=== PATIENT | male | born 1945 | race Caucasian/White ===

== ENCOUNTER 2019-05-16 18:07 | Inpatient (IN) ==
[2019-05-16 18:55] LABS: Basophils % 0.3 %; Eosinophils # 0.2 K/mcL (0.0-0.6); Eosinophils % 1.2 %; Hematocrit 34.6 % (37.5-50.1); Immature Granulocytes % 1.3 % (0-4); Lymphocytes # 1.1 K/mcL (0.6-4.6); Lymphocytes % 8.5 %; Mean Corpuscular HGB Conc 31.8 g/dL (31.6-35.5); Mean Corpuscular Hemoglobin 28.4 pg (28.0-33.3); Mean Corpuscular Volume 89.4 fL (83.0-100.0); Mean Platelet Volume 9.6 fL (9.4-12.4); Monocytes % 8.1 %; Neutrophils # 10.1 K/mcL (1.6-8.9); Platelet Count 353 K/mcL (140-400); Red Blood Count 3.87 M/mcL (4.19-5.50); Red Cell Distribution Width 17.9 % (11.5-14.5); Segmented Neutrophils % 80.6 %; White Blood Count 12.6 K/mcL (4.3-11.1)
[2019-05-16] MEDS ORDERED: Piperacillin/Tazobactam 3.375 GM in 0.9 % Sodium Chloride Mini Bag 100 ML IVPB ONE (19:00)
[2019-05-16] MEDS ORDERED: DAPTOmycin 600 MG in 0.9 % Sodium Chloride 100 ML IVPB ONE (19:00)
[2019-05-16 19:03] LABS: INR 3.9
[2019-05-16 19:05] LABS: Prothrombin Time 44.4 Seconds (9.4-12.1)
[2019-05-16 21:00] LABS: Albumin 2.9 g/dL (3.5-5.7); Bilirubin,Total 0.9 mg/dL (0.3-1.0); Potassium 4.3 mEq/L (3.5-5.1); Total Protein 5.9 g/dL (6.4-8.9)
[2019-05-16] MEDS ORDERED: Ondansetron 4 MG/2 ML VIAL IVP PRN (21:03)
[2019-05-16] MEDS ORDERED: Naloxone 0.4 MG/ML INJ IVP PRN (21:03)
[2019-05-16] MEDS ORDERED: 0.9 % Sodium Chloride 1,000 ML IVC SCH (21:15)
[2019-05-16] MEDS ORDERED: *HR* Dextrose 50 % in Water (Syg) 50 ML SYRINGE IVP PRN (22:03)
[2019-05-16] MEDS ORDERED: D5% in Water 1,000 ML IVC PRN (22:03)
[2019-05-16] MEDS ORDERED: Dextrose Gel 15 GM/37.5 ML TUBE PO PRN ×2 (22:03)
[2019-05-16] MEDS: *HR* HYDROcodone/Acet 5/325 mg TABLET PO PRN (23:23)
[2019-05-16] MEDS: 0.9 % Sodium Chloride 1,000 ML IVC SCH (23:23)
[2019-05-17 06:35] LABS: Basophils # 0.1 K/mcL (0.0-0.2); Basophils % 0.3 %; Eosinophils # 0.1 K/mcL (0.0-0.6); Eosinophils % 0.8 %; Hematocrit 38.5 % (37.5-50.1); Hemoglobin 11.9 g/dL (12.9-16.9); Immature Granulocytes % 1.1 % (0-4); Lymphocytes # 1.2 K/mcL (0.6-4.6); Lymphocytes % 8.3 %; Mean Corpuscular HGB Conc 30.9 g/dL (31.6-35.5); Mean Corpuscular Hemoglobin 27.9 pg (28.0-33.3); Mean Corpuscular Volume 90.4 fL (83.0-100.0); Mean Platelet Volume 9.2 fL (9.4-12.4); Monocytes # 1.3 K/mcL (0.0-1.3); Monocytes % 9.1 %; Neutrophils # 11.8 K/mcL (1.6-8.9); Platelet Count 352 K/mcL (140-400); Red Blood Count 4.26 M/mcL (4.19-5.50); Red Cell Distribution Width 18.1 % (11.5-14.5); Segmented Neutrophils % 80.4 %; White Blood Count 14.7 K/mcL (4.3-11.1)
[2019-05-17 06:43] LABS: INR 3.4; Prothrombin Time 38.4 Seconds (9.4-12.1)
[2019-05-17 06:46] LABS: Activated Partial Thrombo Time 55.7 Seconds (26.0-36.0)
[2019-05-17] MEDS: Insulin LISPRO 300 UNITS/3 ML VIAL SQ SCH ×4 (08:24→23:35)
[2019-05-17 08:45] LABS: Bilirubin,Total 1.1 mg/dL (0.3-1.0); Calcium 8.2 mg/dL (8.6-10.3); Chol/HDL Ratio 2.1 (0-4.9); Magnesium 2.4 mg/dL (1.6-2.6); Phosphorous 4.2 mg/dL (2.7-4.5); Potassium 4.2 mEq/L (3.5-5.1)
[2019-05-17] MEDS: Piperacillin/Tazobactam 3.375 GM in 0.9 % Sodium Chloride Mini Bag 100 ML IVPB SCH ×3 (09:41→23:40)
[2019-05-17] MEDS: Acetaminophen 325 MG TABLET PO PRN (09:42)
[2019-05-17] MEDS: 0.9 % Sodium Chloride 1,000 ML IVC SCH (13:12)
[2019-05-17] MEDS ORDERED: Furosemide 40 MG TABLET PO SCH (17:00)
[2019-05-17] MEDS: Furosemide 40 MG TABLET PO SCH (17:53)
[2019-05-17] MEDS: DAPTOmycin 500 MG in 0.9 % Sodium Chloride 100 ML IVPB SCH (17:53)
[2019-05-17] MEDS ORDERED: DAPTOmycin 750 MG in 0.9 % Sodium Chloride 100 ML IVPB SCH (20:00)
[2019-05-17] MEDS: Melatonin 3 MG TABLET PO SCH (23:33)
[2019-05-18 04:37] LABS: Basophils # 0.1 K/mcL (0.0-0.2); Basophils % 0.4 %; Eosinophils # 0.2 K/mcL (0.0-0.6); Eosinophils % 1.4 %; Hematocrit 37.5 % (37.5-50.1); Hemoglobin 11.5 g/dL (12.9-16.9); Immature Granulocytes % 1.4 % (0-4); Lymphocytes # 1.3 K/mcL (0.6-4.6); Lymphocytes % 10.5 %; Mean Corpuscular HGB Conc 30.7 g/dL (31.6-35.5); Mean Corpuscular Volume 91.5 fL (83.0-100.0); Mean Platelet Volume 9.6 fL (9.4-12.4); Monocytes % 8.7 %; Neutrophils # 9.3 K/mcL (1.6-8.9); Platelet Count 392 K/mcL (140-400); Red Cell Distribution Width 18.1 % (11.5-14.5); Segmented Neutrophils % 77.6 %
[2019-05-18 04:50] LABS: Calcium 8.1 mg/dL (8.6-10.3); Potassium 4.2 mEq/L (3.5-5.1)
[2019-05-18] MEDS: Acetaminophen 325 MG TABLET PO PRN ×2 (06:52→20:57)
[2019-05-18] MEDS: Insulin LISPRO 300 UNITS/3 ML VIAL SQ SCH ×4 (08:15→20:08)
[2019-05-18] MEDS: Piperacillin/Tazobactam 3.375 GM in 0.9 % Sodium Chloride Mini Bag 100 ML IVPB SCH ×2 (10:12→18:19)
[2019-05-18] MEDS: Furosemide 40 MG TABLET PO SCH (10:12)
[2019-05-18 16:27] LABS: INR 3.6; Prothrombin Time 40.7 Seconds (9.4-12.1)
[2019-05-18] MEDS ORDERED: *HR* Phytonadione 10 MG/ML AMPUL SQ ONE (17:52)
[2019-05-18] MEDS: carvediloL 25 MG TABLET PO SCH (18:20)
[2019-05-18] MEDS: DAPTOmycin 500 MG in 0.9 % Sodium Chloride 100 ML IVPB SCH (20:04)
[2019-05-18] MEDS: *HR* Acetylcysteine 20% 600 MG/3 ML ORAL SYRINGE PO SCH (20:07)
[2019-05-18] MEDS: Melatonin 3 MG TABLET PO SCH (20:08)
[2019-05-18] MEDS: predniSONE 20 MG TABLET PO SCH (20:08)
[2019-05-19] MEDS: Piperacillin/Tazobactam 3.375 GM in 0.9 % Sodium Chloride Mini Bag 100 ML IVPB SCH ×3 (01:02→17:33)
[2019-05-19] MEDS: predniSONE 20 MG TABLET PO SCH (03:13)
[2019-05-19 04:09] LABS: Basophils % 0.2 %; Eosinophils % 0.1 %; Hematocrit 36.6 % (37.5-50.1); Hemoglobin 11.3 g/dL (12.9-16.9); Immature Granulocytes % 1.5 % (0-4); Lymphocytes # 0.5 K/mcL (0.6-4.6); Lymphocytes % 5.6 %; Mean Corpuscular HGB Conc 30.9 g/dL (31.6-35.5); Mean Corpuscular Volume 90.8 fL (83.0-100.0); Mean Platelet Volume 9.4 fL (9.4-12.4); Monocytes # 0.1 K/mcL (0.0-1.3); Monocytes % 1.5 %; Neutrophils # 8.5 K/mcL (1.6-8.9); Platelet Count 337 K/mcL (140-400); Red Blood Count 4.03 M/mcL (4.19-5.50); Red Cell Distribution Width 17.9 % (11.5-14.5); Segmented Neutrophils % 91.1 %; White Blood Count 9.3 K/mcL (4.3-11.1)
[2019-05-19 04:18] LABS: Calcium 8.2 mg/dL (8.6-10.3); Potassium 4.4 mEq/L (3.5-5.1)
[2019-05-19 04:59] LABS: INR 4.3
[2019-05-19 05:03] LABS: Prothrombin Time 48.8 Seconds (9.4-12.1)
[2019-05-19] MEDS ORDERED: Sod Bicarb 150mEq/D5W 150 MEQ/1,000 ML IV.SOLN IVC SCH (07:00)
[2019-05-19] MEDS: Famotidine 20 MG TABLET PO SCH (08:59)
[2019-05-19] MEDS: carvediloL 25 MG TABLET PO SCH ×2 (09:00→17:33)
[2019-05-19] MEDS: MV MINERALS PO SCH (09:06)
[2019-05-19] MEDS: [UNRECOGNIZED DRUG - OTHER] PO SCH (09:06)
[2019-05-19] MEDS: LYCOPENE PO SCH (09:06)
[2019-05-19] MEDS: GINKGO PO SCH (09:06)
[2019-05-19] MEDS: Insulin LISPRO 300 UNITS/3 ML VIAL SQ SCH ×4 (09:20→20:24)
[2019-05-19] MEDS ORDERED: *HR* Phytonadione 10 MG/ML AMPUL SQ ONE (12:30)
[2019-05-19] MEDS: Acetaminophen 325 MG TABLET PO PRN (14:23)
[2019-05-19] MEDS: *HR* Acetylcysteine 20% 600 MG/3 ML ORAL SYRINGE PO SCH ×2 (15:40→16:00)
[2019-05-19] MEDS: *HR* HYDROcodone/Acet 5/325 mg TABLET PO PRN (17:34)
[2019-05-19] MEDS: Insulin DETEMIR 100 UNIT/ML X5UNITS SQ SCH (20:25)
[2019-05-19] MEDS: DAPTOmycin 500 MG in 0.9 % Sodium Chloride 100 ML IVPB SCH (20:26)
[2019-05-19] MEDS: Melatonin 3 MG TABLET PO SCH (23:02)
[2019-05-20] MEDS: Piperacillin/Tazobactam 3.375 GM in 0.9 % Sodium Chloride Mini Bag 100 ML IVPB SCH ×3 (00:30→16:44)
[2019-05-20] MEDS: *HR* Acetylcysteine 20% 600 MG/3 ML ORAL SYRINGE PO SCH ×2 (04:52→11:15)
[2019-05-20 04:56] LABS: Basophils % 0.1 %; Eosinophils % 0.1 %; Hematocrit 34.4 % (37.5-50.1); Hemoglobin 10.6 g/dL (12.9-16.9); Immature Granulocytes % 1.7 % (0-4); Lymphocytes # 1.1 K/mcL (0.6-4.6); Lymphocytes % 9.8 %; Mean Corpuscular HGB Conc 30.8 g/dL (31.6-35.5); Mean Corpuscular Volume 90.8 fL (83.0-100.0); Monocytes # 0.8 K/mcL (0.0-1.3); Neutrophils # 9.2 K/mcL (1.6-8.9); Platelet Count 340 K/mcL (140-400); Red Blood Count 3.79 M/mcL (4.19-5.50); Red Cell Distribution Width 17.7 % (11.5-14.5); Segmented Neutrophils % 81.3 %; White Blood Count 11.3 K/mcL (4.3-11.1)
[2019-05-20 05:03] LABS: INR 2.3; Prothrombin Time 26.1 Seconds (9.4-12.1)
[2019-05-20 05:15] LABS: Calcium 8.1 mg/dL (8.6-10.3); Potassium 4.4 mEq/L (3.5-5.1)
[2019-05-20] MEDS: Insulin LISPRO 300 UNITS/3 ML VIAL SQ SCH ×4 (09:48→21:01)
[2019-05-20] MEDS: carvediloL 25 MG TABLET PO SCH ×2 (10:00→16:43)
[2019-05-20] MEDS: Famotidine 20 MG TABLET PO SCH (10:01)
[2019-05-20] MEDS: MV MINERALS PO SCH (10:02)
[2019-05-20] MEDS: [UNRECOGNIZED DRUG - OTHER] PO SCH (10:02)
[2019-05-20] MEDS: GINKGO PO SCH (10:02)
[2019-05-20] MEDS: LYCOPENE PO SCH (10:02)
[2019-05-20] MEDS: Acetaminophen 325 MG TABLET PO PRN (11:14)
[2019-05-20] MEDS: Artificial Tears SOLN 15 ML BOTTLE BOTH EYES PRN (16:45)
[2019-05-20] MEDS ORDERED: *HR* Phytonadione 10 MG/ML AMPUL SQ ONE (17:02)
[2019-05-20] MEDS: DAPTOmycin 500 MG in 0.9 % Sodium Chloride 100 ML IVPB SCH (21:00)
[2019-05-20] MEDS: Insulin DETEMIR 100 UNIT/ML X5UNITS SQ SCH (21:01)
[2019-05-20] MEDS: Melatonin 3 MG TABLET PO SCH (21:01)
[2019-05-21] MEDS: Acetaminophen 325 MG TABLET PO PRN ×2 (00:08→10:21)
[2019-05-21] MEDS: *HR* Acetylcysteine 20% 600 MG/3 ML ORAL SYRINGE PO SCH ×2 (00:08→11:03)
[2019-05-21] MEDS: Piperacillin/Tazobactam 3.375 GM in 0.9 % Sodium Chloride Mini Bag 100 ML IVPB SCH ×4 (00:09→23:35)
[2019-05-21] MEDS: Artificial Tears SOLN 15 ML BOTTLE BOTH EYES PRN (00:16)
[2019-05-21 05:51] LABS: Basophils % 0.3 %; Eosinophils # 0.1 K/mcL (0.0-0.6); Eosinophils % 1.2 %; Hematocrit 36.2 % (37.5-50.1); Hemoglobin 11.1 g/dL (12.9-16.9); Immature Granulocytes % 1.8 % (0-4); Lymphocytes # 1.2 K/mcL (0.6-4.6); Lymphocytes % 12.1 %; Mean Corpuscular HGB Conc 30.7 g/dL (31.6-35.5); Mean Corpuscular Hemoglobin 28.1 pg (28.0-33.3); Mean Corpuscular Volume 91.6 fL (83.0-100.0); Mean Platelet Volume 9.4 fL (9.4-12.4); Monocytes # 0.7 K/mcL (0.0-1.3); Neutrophils # 7.9 K/mcL (1.6-8.9); Platelet Count 309 K/mcL (140-400); Red Blood Count 3.95 M/mcL (4.19-5.50); Red Cell Distribution Width 17.9 % (11.5-14.5); Segmented Neutrophils % 77.6 %; White Blood Count 10.1 K/mcL (4.3-11.1)
[2019-05-21 05:59] LABS: INR 1.5; Prothrombin Time 17.3 Seconds (9.4-12.1)
[2019-05-21 06:15] LABS: Calcium 7.9 mg/dL (8.6-10.3); Potassium 4.1 mEq/L (3.5-5.1)
[2019-05-21] MEDS ORDERED: Sod Bicarb 150mEq/D5W 150 MEQ/1,000 ML IV.SOLN IVC ONE (07:45)
[2019-05-21] MEDS: Insulin LISPRO 300 UNITS/3 ML VIAL SQ SCH ×4 (08:08→21:29)
[2019-05-21] MEDS: carvediloL 25 MG TABLET PO SCH ×2 (10:21→20:14)
[2019-05-21] MEDS: Multivit/Ca/Min/Fe/FA 1 TAB TABLET PO SCH (10:21)
[2019-05-21] MEDS: Famotidine 20 MG TABLET PO SCH (10:21)
[2019-05-21] MEDS: Albumin 25% 25gram/100mL 25 GM/100 ML IV.SOLN IVC SCH ×4 (11:47→16:35)
[2019-05-21 14:23] LABS: Bilirubin,Urine Negative (Negative); Blood,Urine Negative (Negative); Clarity,Urine Clear (Clear); Color,Urine Yellow (Yellow); Glucose,Urine (UA) Normal (Normal); Ketones,Urine Negative (Negative); Leukocyte Esterase,Urine Negative (Negative); Nitrite,Urine Negative (Negative); PH,Urine 5.5 pH Units (5.0-8.0); Protein,Urine Negative (Neg-Trace); Specific Gravity,Urine 1.019 (1.010-1.025); Urobilinogen,Urine Normal (Normal)
[2019-05-21 14:47] LABS: Protein/Creatinine Ratio,Urine 0.21 mg/mg (0.00-0.20)
[2019-05-21] MEDS ORDERED: Heparin 1,000 UNITS/500 mL 500 ML ONE (17:27)
[2019-05-21] MEDS ORDERED: 0.9 % Sodium Chloride 1,000 ML ONE ×2 (17:27→17:37)
[2019-05-21] MEDS ORDERED: *HR* Heparin 10,000 UNIT/10 ML VIAL ONE (17:27)
[2019-05-21] MEDS ORDERED: Isovue-300 200 mL Infus..BTL ONE (17:37)
[2019-05-21] MEDS ORDERED: methylPREDNISolone 125 MG/2 ML VIAL ONE (17:53)
[2019-05-21] MEDS ORDERED: *HR* Midazolam HCl 2 MG/2 ML VIAL ONE (18:06)
[2019-05-21] MEDS ORDERED: 0.9 % Sodium Chloride 1,000 ML IVC SCH (19:15)
[2019-05-21] MEDS: DAPTOmycin 500 MG in 0.9 % Sodium Chloride 100 ML IVPB SCH (19:42)
[2019-05-21] MEDS: *HR* HYDROcodone/Acet 5/325 mg TABLET PO PRN (20:25)
[2019-05-21] MEDS: Melatonin 3 MG TABLET PO SCH (21:28)
[2019-05-21] MEDS: Insulin DETEMIR 100 UNIT/ML X5UNITS SQ SCH (21:28)
[2019-05-22] MEDS ORDERED: Acetaminophen IV 500 MG/50 ML INFUS..BTL IVPB ONE (02:54)
[2019-05-22 04:08] LABS: Basophils % 0.2 %; Hematocrit 35.5 % (37.5-50.1); Hemoglobin 10.8 g/dL (12.9-16.9); Lymphocytes # 0.5 K/mcL (0.6-4.6); Lymphocytes % 8.5 %; Mean Corpuscular HGB Conc 30.4 g/dL (31.6-35.5); Mean Corpuscular Hemoglobin 28.4 pg (28.0-33.3); Mean Corpuscular Volume 93.4 fL (83.0-100.0); Mean Platelet Volume 9.7 fL (9.4-12.4); Monocytes # 0.1 K/mcL (0.0-1.3); Monocytes % 1.3 %; Neutrophils # 5.3 K/mcL (1.6-8.9); Platelet Count 269 K/mcL (140-400); Red Cell Distribution Width 17.8 % (11.5-14.5)
[2019-05-22 04:12] LABS: INR 1.5; Prothrombin Time 17.3 Seconds (9.4-12.1)
[2019-05-22 04:24] LABS: Potassium 4.7 mEq/L (3.5-5.1)
[2019-05-22] MEDS: Insulin LISPRO 300 UNITS/3 ML VIAL SQ SCH ×4 (06:33→17:18)
[2019-05-22] MEDS: Multivit/Ca/Min/Fe/FA 1 TAB TABLET PO SCH (11:24)
[2019-05-22] MEDS: carvediloL 25 MG TABLET PO SCH ×2 (11:24→17:17)
[2019-05-22] MEDS: Famotidine 20 MG TABLET PO SCH (11:24)
[2019-05-22] MEDS: Piperacillin/Tazobactam 3.375 GM in 0.9 % Sodium Chloride Mini Bag 100 ML IVPB SCH (11:24)
[2019-05-22] MEDS ORDERED: Insulin LISPRO 300 UNITS/3 ML VIAL SQ SCH ×2 (11:34→21:00)
[2019-05-22] MEDS: *HR* Heparin 5,000 UNIT/ML VIAL SQ SCH (17:18)
[2019-05-22] MEDS ORDERED: DAPTOmycin 500 MG in 0.9 % Sodium Chloride 100 ML IVPB SCH (19:00)
[2019-05-22] MEDS: Doxycycline 100 MG CAPSULE PO SCH (21:00)
[2019-05-22] MEDS: Melatonin 3 MG TABLET PO SCH (21:00)
[2019-05-22] MEDS: Insulin DETEMIR 100 UNIT/ML X5UNITS SQ SCH (21:08)
[2019-05-23 02:03] LABS: Basophils % 0.2 %; Eosinophils % 0.2 %; Hematocrit 37.2 % (37.5-50.1); Hemoglobin 11.4 g/dL (12.9-16.9); Immature Granulocytes % 1.6 % (0-4); Lymphocytes # 1.2 K/mcL (0.6-4.6); Lymphocytes % 11.1 %; Mean Corpuscular HGB Conc 30.6 g/dL (31.6-35.5); Mean Corpuscular Hemoglobin 27.9 pg (28.0-33.3); Mean Platelet Volume 9.3 fL (9.4-12.4); Monocytes # 0.8 K/mcL (0.0-1.3); Monocytes % 7.6 %; Neutrophils # 8.5 K/mcL (1.6-8.9); Platelet Count 286 K/mcL (140-400); Red Blood Count 4.09 M/mcL (4.19-5.50); Red Cell Distribution Width 18.1 % (11.5-14.5); Segmented Neutrophils % 79.3 %
[2019-05-23 02:06] LABS: White Blood Count 10.7 K/mcL (4.3-11.1)
[2019-05-23 02:23] LABS: Calcium 8.1 mg/dL (8.6-10.3); Magnesium 2.5 mg/dL (1.6-2.6); Phosphorous 5.5 mg/dL (2.7-4.5); Potassium 4.3 mEq/L (3.5-5.1)
[2019-05-23] MEDS: *HR* Heparin 5,000 UNIT/ML VIAL SQ SCH ×2 (04:48→16:59)
[2019-05-23] MEDS ORDERED: *HR* Succinylcholine 200 MG/10 ML VIAL IVP ONE (06:54)
[2019-05-23] MEDS ORDERED: Lidocaine -MPF 2% 2 ML VIAL ONE ×2 (06:54→09:07)
[2019-05-23] MEDS ORDERED: *HR* FentaNYL (PF) 100 MCG/2 ML VIAL ONE (06:54)
[2019-05-23] MEDS ORDERED: *HR* Labetalol 20 MG/4 ML SYRINGE IVP ONE (06:54)
[2019-05-23] MEDS ORDERED: *HR* Rocuronium Bromide 50 MG/5 ML VIAL ONE (06:54)
[2019-05-23] MEDS ORDERED: Dexamethasone 4 MG/ML VIAL ONE (06:54)
[2019-05-23] MEDS ORDERED: Lidocaine -MPF 4% 5 ML AMPUL ONE (06:54)
[2019-05-23] MEDS ORDERED: *HR* Propofol 200 MG/20 ML VIAL IVP ONE (06:59)
[2019-05-23] MEDS ORDERED: Calcium Gluconate 1,000 MG/10 ML VIAL ONE (07:39)
[2019-05-23] MEDS ORDERED: Heparin 1,000 UNITS/500 mL 500 ML ONE ×2 (07:52→08:04)
[2019-05-23] MEDS ORDERED: *HR* Remifentanil 2 MG VIAL IVP ONE ×2 (08:05→11:23)
[2019-05-23] MEDS ORDERED: *HR* Phenylephrine 10 MG/ML VIAL ONE (08:07)
[2019-05-23] MEDS ORDERED: Vancomycin 1,000 MG, Sodium Chloride IRRigation 1,000 ML IR ONE (08:15)
[2019-05-23] MEDS ORDERED: *HR* Etomidate 40 MG/20 ML VIAL IVP ONE (08:16)
[2019-05-23] MEDS ORDERED: EPINEPHrine 1 MG/ML VIAL ONE (08:17)
[2019-05-23] MEDS ORDERED: Furosemide 40 MG/4 ML VIAL ONE (08:31)
[2019-05-23] MEDS ORDERED: *HR* Vasopressin 20 UNIT/ML VIAL ONE (08:33)
[2019-05-23] MEDS ORDERED: Amoxicillin/Clavulanate 500 MG TABLET PO SCH (09:33)
[2019-05-23] MEDS ORDERED: *HR* Dextrose 50 % in Water (Syg) 50 ML SYRINGE ONE (10:59)
[2019-05-23 11:14] LABS: ABG Base Excess -2 mEq/L (-2 to 3); ABG Chloride 106 mEq/L (98-107); ABG Glucose 43 mg/dL (60-95); ABG HCO3 22 mEq/L (21-27); ABG Ionized Calcium 1.07 mmol/L (1.15-1.35); ABG Oxygen Saturation 100 % (95-98); ABG PCO2 37 mmHg (35-45); ABG PH 7.39 pH Units (7.32-7.45); ABG PO2 540 mmHg (85-104); ABG TCO2 24 mEq/L (20-26)
[2019-05-23] MEDS ORDERED: *HR* HYDROmorphone (PF) 1 MG/ML SYRINGE IVP PRN (14:16)
[2019-05-23] MEDS ORDERED: *HR* OxyCODONE Immed Rel 5 MG TABLET PO PRN (14:16)
[2019-05-23] MEDS ORDERED: *HR* Dextrose 50 % in Water (Syg) 50 ML SYRINGE IVP PRN (15:45)
[2019-05-23] MEDS ORDERED: Naloxone 0.4 MG/ML INJ IVP PRN (15:45)
[2019-05-23] MEDS ORDERED: D5% in Water 1,000 ML IVC PRN (15:45)
[2019-05-23] MEDS ORDERED: 0.9 % Sodium Chloride 1,000 ML IVC SCH (15:45)
[2019-05-23] MEDS ORDERED: Dextrose Gel 15 GM/37.5 ML TUBE PO PRN ×2 (15:45)
[2019-05-23] MEDS ORDERED: Artificial Tears SOLN 15 ML BOTTLE BOTH EYES PRN (15:45)
[2019-05-23] MEDS ORDERED: Acetaminophen 325 MG TABLET PO PRN (15:45)
[2019-05-23] MEDS: Amoxicillin/Clavulanate 500 MG TABLET PO SCH (16:59)
[2019-05-23] MEDS: *HR* HYDROcodone/Acet 5/325 mg TABLET PO PRN (16:59)
[2019-05-23] MEDS: carvediloL 25 MG TABLET PO SCH (17:00)
[2019-05-23] MEDS: Insulin LISPRO 300 UNITS/3 ML VIAL SQ SCH ×2 (17:00→20:55)
[2019-05-23] MEDS: Calcium Acetate 667 MG CAPSULE PO SCH (17:01)
[2019-05-23] MEDS: Doxycycline 100 MG CAPSULE PO SCH (19:42)
[2019-05-23] MEDS: Insulin DETEMIR 100 UNIT/ML X5UNITS SQ SCH (21:26)
[2019-05-23] MEDS: Melatonin 3 MG TABLET PO SCH (21:29)
[2019-05-24 05:23] LABS: Basophils % 0.2 %; Eosinophils % 0.1 %; Hematocrit 31.1 % (37.5-50.1); Immature Granulocytes % 1.3 % (0-4); Lymphocytes # 1.5 K/mcL (0.6-4.6); Lymphocytes % 12.5 %; Mean Corpuscular HGB Conc 30.9 g/dL (31.6-35.5); Mean Corpuscular Hemoglobin 28.7 pg (28.0-33.3); Mean Corpuscular Volume 93.1 fL (83.0-100.0); Mean Platelet Volume 9.8 fL (9.4-12.4); Monocytes # 0.8 K/mcL (0.0-1.3); Monocytes % 6.9 %; Neutrophils # 9.4 K/mcL (1.6-8.9); Nucleated Red Blood Cells 0.2 /100 WBC (0); Platelet Count 254 K/mcL (140-400); Red Blood Count 3.34 M/mcL (4.19-5.50); White Blood Count 11.9 K/mcL (4.3-11.1)
[2019-05-24 05:28] LABS: Hemoglobin 9.6 g/dL (12.9-16.9)
[2019-05-24 05:42] LABS: Potassium 4.8 mEq/L (3.5-5.1)
[2019-05-24 05:43] LABS: Magnesium 2.4 mg/dL (1.6-2.6); Phosphorous 6.5 mg/dL (2.7-4.5)
[2019-05-24] MEDS: *HR* Heparin 5,000 UNIT/ML VIAL SQ SCH ×2 (06:38→17:48)
[2019-05-24] MEDS: Doxycycline 100 MG CAPSULE PO SCH ×3 (06:38→20:20)
[2019-05-24] MEDS: Insulin LISPRO 300 UNITS/3 ML VIAL SQ SCH ×5 (07:34→20:23)
[2019-05-24] MEDS: carvediloL 25 MG TABLET PO SCH ×3 (07:45→17:45)
[2019-05-24] MEDS: Famotidine 20 MG TABLET PO SCH ×2 (07:46→07:55)
[2019-05-24] MEDS: Multivit/Ca/Min/Fe/FA 1 TAB TABLET PO SCH ×2 (07:46→07:56)
[2019-05-24] MEDS: Amoxicillin/Clavulanate 500 MG TABLET PO SCH ×2 (07:55→17:45)
[2019-05-24] MEDS: Calcium Acetate 667 MG CAPSULE PO SCH ×3 (07:56→17:45)
[2019-05-24] MEDS ORDERED: *HR* Heparin 10,000 UNIT/10 ML VIAL IV PRN (10:14)
[2019-05-24] MEDS ORDERED: 0.9 % Sodium Chloride 250 ML IVC PRN (10:14)
[2019-05-24] MEDS ORDERED: 0.9 % Sodium Chloride 1,000 ML PRIME SCH (10:15)
[2019-05-24] MEDS ORDERED: Albumin 25% 12.5gm/50mL 25.0 GM/100 ML IV.SOLN ONE (11:21)
[2019-05-24 11:43] LABS: Hepatitis B Surface Antibody > 850.00 mIU/mL
[2019-05-24 11:54] LABS: Hepatitis B Surface Antigen Nonreactive (Nonreactive)
[2019-05-24] MEDS: Sennosides/Docusate Sodium TABLET PO SCH (20:20)
[2019-05-24] MEDS: Insulin DETEMIR 100 UNIT/ML X5UNITS SQ SCH (20:29)
[2019-05-25] MEDS: *HR* HYDROcodone/Acet 5/325 mg TABLET PO PRN (00:43)
[2019-05-25] MEDS: Melatonin 3 MG TABLET PO SCH ×2 (00:43→21:51)
[2019-05-25 04:37] LABS: Basophils % 0.1 %; Eosinophils # 0.2 K/mcL (0.0-0.6); Eosinophils % 1.4 %; Hematocrit 28.8 % (37.5-50.1); Hemoglobin 8.9 g/dL (12.9-16.9); Lymphocytes # 1.2 K/mcL (0.6-4.6); Mean Corpuscular HGB Conc 30.9 g/dL (31.6-35.5); Mean Corpuscular Hemoglobin 28.9 pg (28.0-33.3); Mean Corpuscular Volume 93.5 fL (83.0-100.0); Mean Platelet Volume 9.1 fL (9.4-12.4); Monocytes % 8.7 %; Neutrophils # 8.3 K/mcL (1.6-8.9); Nucleated Red Blood Cells 0.2 /100 WBC (0); Platelet Count 193 K/mcL (140-400); Red Blood Count 3.08 M/mcL (4.19-5.50); Segmented Neutrophils % 76.8 %; White Blood Count 10.9 K/mcL (4.3-11.1)
[2019-05-25 04:56] LABS: Potassium 4.2 mEq/L (3.5-5.1)
[2019-05-25] MEDS: *HR* Heparin 5,000 UNIT/ML VIAL SQ SCH (06:32)
[2019-05-25] MEDS: Doxycycline 100 MG CAPSULE PO SCH ×2 (06:32→17:51)
[2019-05-25] MEDS: Ondansetron 4 MG/2 ML VIAL IVP PRN (07:50)
[2019-05-25] MEDS: Sennosides/Docusate Sodium TABLET PO SCH ×2 (07:54→21:50)
[2019-05-25] MEDS: Calcium Acetate 667 MG CAPSULE PO SCH ×3 (07:54→17:49)
[2019-05-25] MEDS: Famotidine 20 MG TABLET PO SCH (07:54)
[2019-05-25] MEDS: Amoxicillin/Clavulanate 500 MG TABLET PO SCH ×2 (07:54→17:51)
[2019-05-25] MEDS: Multivit/Ca/Min/Fe/FA 1 TAB TABLET PO SCH (07:54)
[2019-05-25] MEDS: Insulin LISPRO 300 UNITS/3 ML VIAL SQ SCH ×4 (07:56→21:51)
[2019-05-25] MEDS: carvediloL 25 MG TABLET PO SCH ×2 (07:57→17:51)
[2019-05-25] MEDS ORDERED: 0.9 % Sodium Chloride 250 ML IVC PRN (08:23)
[2019-05-25] MEDS ORDERED: Albumin 25% 25gram/100mL 25 GM/100 ML IV.SOLN IVPB PRN (08:23)
[2019-05-25] MEDS ORDERED: *HR* Heparin 10,000 UNIT/10 ML VIAL IV PRN (08:26)
[2019-05-25] MEDS ORDERED: Albumin 25% 25gram/100mL 25 GM/100 ML IV.SOLN IVPB ONE (09:23)
[2019-05-25] MEDS ORDERED: Albumin 25% 12.5gm/50mL 25.0 GM/100 ML IV.SOLN ONE (09:44)
[2019-05-25] MEDS: Aspirin Enteric Coated 81 MG Tablet PO SCH (17:58)
[2019-05-25] MEDS ORDERED: Warfarin perPT PO PRN (18:00)
[2019-05-25] MEDS ORDERED: *HR* Warfarin 2 MG TABLET PO ONE (18:00)
[2019-05-25] MEDS: Insulin DETEMIR 100 UNIT/ML X5UNITS SQ SCH (21:51)
[2019-05-26 07:02] LABS: Basophils % 0.2 %; Eosinophils # 0.1 K/mcL (0.0-0.6); Eosinophils % 0.9 %; Hematocrit 29.6 % (37.5-50.1); Hemoglobin 9.2 g/dL (12.9-16.9); Lymphocytes # 1.3 K/mcL (0.6-4.6); Lymphocytes % 10.3 %; Mean Corpuscular HGB Conc 31.1 g/dL (31.6-35.5); Mean Corpuscular Hemoglobin 28.6 pg (28.0-33.3); Mean Corpuscular Volume 91.9 fL (83.0-100.0); Mean Platelet Volume 9.8 fL (9.4-12.4); Monocytes # 1.1 K/mcL (0.0-1.3); Monocytes % 9.1 %; Neutrophils # 9.5 K/mcL (1.6-8.9); Nucleated Red Blood Cells 0.2 /100 WBC (0); Platelet Count 207 K/mcL (140-400); Red Blood Count 3.22 M/mcL (4.19-5.50); Segmented Neutrophils % 77.5 %; White Blood Count 12.3 K/mcL (4.3-11.1)
[2019-05-26 07:09] LABS: INR 1.4; Prothrombin Time 15.4 Seconds (9.4-12.1)
[2019-05-26 07:18] LABS: Calcium 8.5 mg/dL (8.6-10.3); Magnesium 2.5 mg/dL (1.6-2.6); Potassium 4.4 mEq/L (3.5-5.1)
[2019-05-26] MEDS: Insulin LISPRO 300 UNITS/3 ML VIAL SQ SCH ×4 (08:23→20:39)
[2019-05-26] MEDS: carvediloL 25 MG TABLET PO SCH ×2 (09:41→17:45)
[2019-05-26] MEDS: Aspirin Enteric Coated 81 MG Tablet PO SCH (09:41)
[2019-05-26] MEDS: Multivit/Ca/Min/Fe/FA 1 TAB TABLET PO SCH (09:41)
[2019-05-26] MEDS: Amoxicillin/Clavulanate 500 MG TABLET PO SCH ×2 (09:41→17:44)
[2019-05-26] MEDS: Ondansetron 4 MG/2 ML VIAL IVP PRN ×2 (09:41→19:00)
[2019-05-26] MEDS: Famotidine 20 MG TABLET PO SCH (09:42)
[2019-05-26] MEDS: Sennosides/Docusate Sodium TABLET PO SCH ×2 (09:42→20:38)
[2019-05-26] MEDS: Doxycycline 100 MG CAPSULE PO SCH ×2 (09:42→18:04)
[2019-05-26] MEDS: Calcium Acetate 667 MG CAPSULE PO SCH ×3 (09:42→17:46)
[2019-05-26] MEDS ORDERED: Morphine Sulfate 2 MG/ML SYRINGE IVP ONE (10:58)
[2019-05-26] MEDS: *HR* HYDROcodone/Acet 5/325 mg TABLET PO PRN ×2 (12:00→20:38)
[2019-05-26] MEDS ORDERED: *HR* Warfarin 2 MG TABLET PO ONE (18:00)
[2019-05-26] MEDS: Melatonin 3 MG TABLET PO SCH (20:38)
[2019-05-26] MEDS: Insulin DETEMIR 100 UNIT/ML X5UNITS SQ SCH (20:39)
[2019-05-27 06:16] LABS: Basophils % 0.1 %; Eosinophils # 0.2 K/mcL (0.0-0.6); Eosinophils % 1.7 %; Hematocrit 30.3 % (37.5-50.1); Hemoglobin 9.4 g/dL (12.9-16.9); Lymphocytes # 1.4 K/mcL (0.6-4.6); Lymphocytes % 10.2 %; Mean Corpuscular Hemoglobin 28.7 pg (28.0-33.3); Mean Corpuscular Volume 92.4 fL (83.0-100.0); Mean Platelet Volume 10.1 fL (9.4-12.4); Monocytes # 1.2 K/mcL (0.0-1.3); Monocytes % 8.8 %; Neutrophils # 10.9 K/mcL (1.6-8.9); Platelet Count 248 K/mcL (140-400); Red Blood Count 3.28 M/mcL (4.19-5.50); Red Cell Distribution Width 18.4 % (11.5-14.5); Segmented Neutrophils % 77.2 %; White Blood Count 14.1 K/mcL (4.3-11.1)
[2019-05-27 06:24] LABS: INR 1.4; Prothrombin Time 15.4 Seconds (9.4-12.1)
[2019-05-27 06:38] LABS: Calcium 8.7 mg/dL (8.6-10.3); Magnesium 2.5 mg/dL (1.6-2.6); Phosphorous 5.7 mg/dL (2.7-4.5); Potassium 4.6 mEq/L (3.5-5.1)
[2019-05-27] MEDS: carvediloL 25 MG TABLET PO SCH ×2 (07:31→18:09)
[2019-05-27] MEDS: Insulin LISPRO 300 UNITS/3 ML VIAL SQ SCH ×4 (07:31→20:59)
[2019-05-27] MEDS: Sennosides/Docusate Sodium TABLET PO SCH ×2 (08:00→21:15)
[2019-05-27] MEDS: Amoxicillin/Clavulanate 500 MG TABLET PO SCH (08:01)
[2019-05-27] MEDS: Aspirin Enteric Coated 81 MG Tablet PO SCH (08:01)
[2019-05-27] MEDS: Famotidine 20 MG TABLET PO SCH (08:01)
[2019-05-27] MEDS: Multivit/Ca/Min/Fe/FA 1 TAB TABLET PO SCH (08:01)
[2019-05-27] MEDS: Doxycycline 100 MG CAPSULE PO SCH (08:01)
[2019-05-27] MEDS: Calcium Acetate 667 MG CAPSULE PO SCH ×3 (08:01→18:09)
[2019-05-27] MEDS ORDERED: 0.9 % Sodium Chloride 250 ML IVC PRN (09:11)
[2019-05-27] MEDS ORDERED: *HR* Heparin 10,000 UNIT/10 ML VIAL IV PRN (09:11)
[2019-05-27] MEDS ORDERED: Albumin 25% 12.5gm/50mL 25.0 GM/100 ML IV.SOLN ONE (09:55)
[2019-05-27] MEDS: *HR* HYDROcodone/Acet 5/325 mg TABLET PO PRN (13:05)
[2019-05-27] MEDS ORDERED: SODIUM CHLORIDE 0.9% IVPB SCH (16:00)
[2019-05-27] MEDS ORDERED: DAPTOMYCIN IVPB SCH (16:00)
[2019-05-27] MEDS ORDERED: Piperacillin/Tazobactam 3.375 GM in 0.9 % Sodium Chloride Mini Bag 100 ML IVPB SCH (18:00)
[2019-05-27] MEDS ORDERED: *HR* Warfarin 2 MG TABLET PO ONE (18:00)
[2019-05-27] MEDS: Ondansetron 4 MG/2 ML VIAL IVP PRN (18:07)
[2019-05-27] MEDS: Insulin DETEMIR 100 UNIT/ML X5UNITS SQ SCH (21:14)
[2019-05-27] MEDS: Melatonin 3 MG TABLET PO SCH (21:15)
[2019-05-28 06:42] LABS: Basophils % 0.2 %; Eosinophils # 0.1 K/mcL (0.0-0.6); Eosinophils % 0.6 %; Hematocrit 29.1 % (37.5-50.1); Immature Granulocytes % 1.6 % (0-4); Lymphocytes # 1.3 K/mcL (0.6-4.6); Lymphocytes % 9.5 %; Mean Corpuscular HGB Conc 30.9 g/dL (31.6-35.5); Mean Corpuscular Hemoglobin 28.5 pg (28.0-33.3); Mean Corpuscular Volume 92.1 fL (83.0-100.0); Mean Platelet Volume 9.9 fL (9.4-12.4); Monocytes # 1.3 K/mcL (0.0-1.3); Monocytes % 9.2 %; Neutrophils # 11.1 K/mcL (1.6-8.9); Platelet Count 222 K/mcL (140-400); Red Blood Count 3.16 M/mcL (4.19-5.50); Red Cell Distribution Width 18.4 % (11.5-14.5); Segmented Neutrophils % 78.9 %; White Blood Count 14.1 K/mcL (4.3-11.1)
[2019-05-28 06:48] LABS: INR 1.6; Prothrombin Time 18.3 Seconds (9.4-12.1)
[2019-05-28 07:02] LABS: Calcium 8.4 mg/dL (8.6-10.3); Magnesium 2.3 mg/dL (1.6-2.6); Phosphorous 4.9 mg/dL (2.7-4.5); Potassium 4.5 mEq/L (3.5-5.1)
[2019-05-28] MEDS ORDERED: 0.9 % Sodium Chloride 250 ML IVC PRN (08:20)
[2019-05-28] MEDS ORDERED: *HR* Heparin 10,000 UNIT/10 ML VIAL IV PRN (08:20)
[2019-05-28] MEDS ORDERED: 0.9 % Sodium Chloride 1,000 ML PRIME SCH (08:30)
[2019-05-28] MEDS: *HR* HYDROcodone/Acet 5/325 mg TABLET PO PRN (08:30)
[2019-05-28] MEDS: Insulin LISPRO 300 UNITS/3 ML VIAL SQ SCH ×4 (08:31→20:59)
[2019-05-28] MEDS: Aspirin Enteric Coated 81 MG Tablet PO SCH (08:33)
[2019-05-28] MEDS: Famotidine 20 MG TABLET PO SCH (08:33)
[2019-05-28] MEDS: Multivit/Ca/Min/Fe/FA 1 TAB TABLET PO SCH (08:33)
[2019-05-28] MEDS: carvediloL 25 MG TABLET PO SCH ×2 (08:34→17:31)
[2019-05-28] MEDS: Sennosides/Docusate Sodium TABLET PO SCH ×2 (08:34→21:04)
[2019-05-28] MEDS: Calcium Acetate 667 MG CAPSULE PO SCH ×3 (08:37→17:31)
[2019-05-28] MEDS ORDERED: Piperacillin/Tazobactam 3.375 GM in 0.9 % Sodium Chloride Mini Bag 100 ML IVPB SCH (09:00)
[2019-05-28] MEDS ORDERED: Albumin 25% 12.5gm/50mL 25.0 GM/100 ML IV.SOLN ONE (09:32)
[2019-05-28] MEDS ORDERED: 0.9 % Sodium Chloride 1,000 ML ONE (09:32)
[2019-05-28] MEDS: Piperacillin/Tazobactam 3.375 GM in 0.9 % Sodium Chloride Mini Bag 100 ML IVPB SCH (17:32)
[2019-05-28] MEDS ORDERED: *HR* Warfarin 4 MG TABLET PO ONE (18:00)
[2019-05-28] MEDS: Melatonin 3 MG TABLET PO SCH (21:05)
[2019-05-28] MEDS: Insulin DETEMIR 100 UNIT/ML X5UNITS SQ SCH (21:07)
[2019-05-29] MEDS: Piperacillin/Tazobactam 3.375 GM in 0.9 % Sodium Chloride Mini Bag 100 ML IVPB SCH ×2 (00:23→11:59)
[2019-05-29] MEDS ORDERED: 0.9 % Sodium Chloride 250 ML IVC PRN ×2 (06:46→16:28)
[2019-05-29] MEDS ORDERED: *HR* Heparin 10,000 UNIT/10 ML VIAL IV PRN (06:46)
[2019-05-29 06:56] LABS: Basophils % 0.1 %; Eosinophils # 0.2 K/mcL (0.0-0.6); Eosinophils % 1.3 %; Hemoglobin 8.9 g/dL (12.9-16.9); Immature Granulocytes % 1.4 % (0-4); Lymphocytes # 1.1 K/mcL (0.6-4.6); Lymphocytes % 8.8 %; Mean Corpuscular HGB Conc 30.7 g/dL (31.6-35.5); Mean Corpuscular Hemoglobin 28.3 pg (28.0-33.3); Mean Corpuscular Volume 92.4 fL (83.0-100.0); Mean Platelet Volume 10.1 fL (9.4-12.4); Monocytes # 1.1 K/mcL (0.0-1.3); Monocytes % 9.3 %; Neutrophils # 9.7 K/mcL (1.6-8.9); Platelet Count 202 K/mcL (140-400); Red Blood Count 3.14 M/mcL (4.19-5.50); Red Cell Distribution Width 18.6 % (11.5-14.5); Segmented Neutrophils % 79.1 %; White Blood Count 12.2 K/mcL (4.3-11.1)
[2019-05-29] MEDS ORDERED: 0.9 % Sodium Chloride 1,000 ML PRIME SCH ×2 (07:00→16:28)
[2019-05-29 07:47] LABS: Calcium 8.4 mg/dL (8.6-10.3); Magnesium 2.4 mg/dL (1.6-2.6); Potassium 4.6 mEq/L (3.5-5.1)
[2019-05-29] MEDS ORDERED: *HR* FentaNYL (PF) 100 MCG/2 ML VIAL ONE (10:56)
[2019-05-29] MEDS ORDERED: *HR* Propofol 200 MG/20 ML VIAL IVP ONE ×2 (10:57→14:10)
[2019-05-29] MEDS ORDERED: Ondansetron 4 MG/2 ML VIAL ONE (10:57)
[2019-05-29] MEDS ORDERED: Lidocaine -MPF 2% 2 ML VIAL ONE (10:57)
[2019-05-29] MEDS: Insulin LISPRO 300 UNITS/3 ML VIAL SQ SCH ×4 (11:57→21:15)
[2019-05-29] MEDS: Calcium Acetate 667 MG CAPSULE PO SCH ×3 (11:58→18:19)
[2019-05-29] MEDS: carvediloL 25 MG TABLET PO SCH ×2 (11:58→18:20)
[2019-05-29] MEDS: Famotidine 20 MG TABLET PO SCH (11:58)
[2019-05-29] MEDS: Aspirin Enteric Coated 81 MG Tablet PO SCH (11:59)
[2019-05-29] MEDS: Multivit/Ca/Min/Fe/FA 1 TAB TABLET PO SCH (12:00)
[2019-05-29] MEDS: Sennosides/Docusate Sodium TABLET PO SCH (12:00)
[2019-05-29] MEDS ORDERED: Lidocaine 1% 20 ML MDV ONE (14:17)
[2019-05-29] MEDS ORDERED: Calcium Gluconate 1,000 MG/10 ML VIAL ONE (14:18)
[2019-05-29] MEDS ORDERED: Vancomycin 1,000 MG VIAL ONE (14:47)
[2019-05-29] MEDS ORDERED: D5% in Water 1,000 ML IVC PRN (16:28)
[2019-05-29] MEDS ORDERED: *HR* Warfarin 4 MG TABLET PO ONE (16:28)
[2019-05-29] MEDS ORDERED: Artificial Tears SOLN 15 ML BOTTLE BOTH EYES PRN (16:28)
[2019-05-29] MEDS ORDERED: Ondansetron 4 MG/2 ML VIAL IVP PRN (16:28)
[2019-05-29] MEDS ORDERED: Albumin 25% 25gram/100mL 25 GM/100 ML IV.SOLN IVPB PRN (16:28)
[2019-05-29] MEDS ORDERED: Naloxone 0.4 MG/ML INJ IVP PRN (16:28)
[2019-05-29] MEDS ORDERED: Warfarin perPT PO PRN (16:28)
[2019-05-29] MEDS ORDERED: Dextrose Gel 15 GM/37.5 ML TUBE PO PRN ×2 (16:28)
[2019-05-29] MEDS ORDERED: *HR* Dextrose 50 % in Water (Syg) 50 ML SYRINGE IVP PRN (16:28)
[2019-05-29 20:42] LABS: Calcium 8.1 mg/dL (8.6-10.3); Magnesium 2.1 mg/dL (1.6-2.6); Potassium 4.3 mEq/L (3.5-5.1)
[2019-05-29 20:55] LABS: Troponin I 0.04 ng/mL (< 0.04)
[2019-05-29] MEDS ORDERED: Insulin DETEMIR 100 UNIT/ML X5UNITS SQ SCH (21:00)
[2019-05-29] MEDS: Acetaminophen 325 MG TABLET PO PRN (21:13)
[2019-05-30] MEDS: Sennosides/Docusate Sodium TABLET PO SCH ×3 (00:02→20:53)
[2019-05-30] MEDS: Melatonin 3 MG TABLET PO SCH ×2 (00:03→20:52)
[2019-05-30] MEDS ORDERED: Piperacillin/Tazobactam 3.375 GM in 0.9 % Sodium Chloride Mini Bag 100 ML IVPB SCH (02:00)
[2019-05-30 02:28] LABS: Hematocrit 28.6 % (37.5-50.1); Hemoglobin 8.9 g/dL (12.9-16.9); Mean Corpuscular HGB Conc 31.1 g/dL (31.6-35.5); Mean Corpuscular Hemoglobin 28.7 pg (28.0-33.3); Mean Corpuscular Volume 92.3 fL (83.0-100.0); Mean Platelet Volume 10.5 fL (9.4-12.4); Platelet Count 222 K/mcL (140-400); White Blood Count 15.6 K/mcL (4.3-11.1)
[2019-05-30 02:52] LABS: Calcium 7.9 mg/dL (8.6-10.3); Potassium 4.1 mEq/L (3.5-5.1); Troponin I 0.04 ng/mL (< 0.04)
[2019-05-30] MEDS: Piperacillin/Tazobactam 3.375 GM in 0.9 % Sodium Chloride Mini Bag 100 ML IVPB SCH ×2 (02:57→16:12)
[2019-05-30] MEDS: Acetaminophen 325 MG TABLET PO PRN ×2 (04:33→22:43)
[2019-05-30] MEDS ORDERED: 0.9 % Sodium Chloride 250 ML IVC PRN (07:41)
[2019-05-30] MEDS ORDERED: *HR* Heparin 10,000 UNIT/10 ML VIAL IV PRN (07:41)
[2019-05-30] MEDS ORDERED: 0.9 % Sodium Chloride 1,000 ML PRIME SCH (07:45)
[2019-05-30] MEDS: Multivit/Ca/Min/Fe/FA 1 TAB TABLET PO SCH (08:14)
[2019-05-30] MEDS: Insulin LISPRO 300 UNITS/3 ML VIAL SQ SCH ×4 (08:16→20:12)
[2019-05-30] MEDS: carvediloL 25 MG TABLET PO SCH ×2 (08:18→18:09)
[2019-05-30] MEDS: Calcium Acetate 667 MG CAPSULE PO SCH ×3 (08:18→18:09)
[2019-05-30] MEDS: *HR* HYDROcodone/Acet 5/325 mg TABLET PO PRN ×2 (08:19→20:52)
[2019-05-30] MEDS: Famotidine 20 MG TABLET PO SCH (08:20)
[2019-05-30] MEDS: Aspirin Enteric Coated 81 MG Tablet PO SCH (08:21)
[2019-05-30] MEDS ORDERED: Albumin 25% 12.5gm/50mL 25.0 GM/100 ML IV.SOLN ONE (09:16)
[2019-05-30] MEDS ORDERED: Furosemide 20 MG TABLET PO SCH (10:45)
[2019-05-30 12:30] LABS: Prothrombin Time 23.3 Seconds (9.4-12.1)
[2019-05-30] MEDS: DAPTOMYCIN IVPB SCH (17:13)
[2019-05-30] MEDS: SODIUM CHLORIDE 0.9% IVPB SCH (17:13)
[2019-05-30] MEDS ORDERED: Warfarin perPT PO PRN (18:00)
[2019-05-30] MEDS ORDERED: *HR* Warfarin 2 MG TABLET PO ONE (18:00)
[2019-05-30] MEDS: Insulin DETEMIR 100 UNIT/ML X5UNITS SQ SCH (20:53)
[2019-05-31] MEDS: Piperacillin/Tazobactam 3.375 GM in 0.9 % Sodium Chloride Mini Bag 100 ML IVPB SCH ×2 (01:50→13:21)
[2019-05-31 02:10] LABS: Hemoglobin 8.3 g/dL (12.9-16.9); Mean Corpuscular HGB Conc 30.7 g/dL (31.6-35.5); Mean Corpuscular Hemoglobin 28.6 pg (28.0-33.3); Mean Corpuscular Volume 93.1 fL (83.0-100.0); Mean Platelet Volume 9.9 fL (9.4-12.4); Platelet Count 179 K/mcL (140-400); Red Cell Distribution Width 19.2 % (11.5-14.5); White Blood Count 14.7 K/mcL (4.3-11.1)
[2019-05-31 02:19] LABS: INR 2.3; Prothrombin Time 26.2 Seconds (9.4-12.1)
[2019-05-31 02:31] LABS: Calcium 8.1 mg/dL (8.6-10.3); Potassium 4.4 mEq/L (3.5-5.1)
[2019-05-31] MEDS ORDERED: 0.9 % Sodium Chloride 250 ML IVC PRN (07:32)
[2019-05-31] MEDS ORDERED: Albumin 25% 25gram/100mL 25 GM/100 ML IV.SOLN IVPB PRN (07:32)
[2019-05-31] MEDS: Sennosides/Docusate Sodium TABLET PO SCH ×2 (07:42→20:30)
[2019-05-31] MEDS: Multivit/Ca/Min/Fe/FA 1 TAB TABLET PO SCH (07:43)
[2019-05-31] MEDS: Aspirin Enteric Coated 81 MG Tablet PO SCH (07:43)
[2019-05-31] MEDS: Famotidine 20 MG TABLET PO SCH (07:43)
[2019-05-31] MEDS: Calcium Acetate 667 MG CAPSULE PO SCH ×3 (07:43→17:05)
[2019-05-31] MEDS: carvediloL 25 MG TABLET PO SCH ×2 (07:43→17:05)
[2019-05-31] MEDS: Insulin LISPRO 300 UNITS/3 ML VIAL SQ SCH ×4 (07:46→20:31)
[2019-05-31] MEDS ORDERED: Albumin 25% 12.5gm/50mL 25.0 GM/100 ML IV.SOLN ONE (08:52)
[2019-05-31] MEDS: *HR* HYDROcodone/Acet 5/325 mg TABLET PO PRN ×2 (10:27→19:40)
[2019-05-31] MEDS ORDERED: *HR* Warfarin 1 MG TABLET PO ONE (18:00)
[2019-05-31] MEDS: Insulin DETEMIR 100 UNIT/ML X5UNITS SQ SCH (20:30)
[2019-05-31] MEDS: Melatonin 3 MG TABLET PO SCH (20:30)
[2019-06-01] MEDS: Piperacillin/Tazobactam 3.375 GM in 0.9 % Sodium Chloride Mini Bag 100 ML IVPB SCH ×2 (02:09→14:48)
[2019-06-01 02:22] LABS: Hematocrit 27.4 % (37.5-50.1); Hemoglobin 8.4 g/dL (12.9-16.9); Mean Corpuscular HGB Conc 30.7 g/dL (31.6-35.5); Mean Corpuscular Hemoglobin 28.4 pg (28.0-33.3); Mean Corpuscular Volume 92.6 fL (83.0-100.0); Mean Platelet Volume 9.9 fL (9.4-12.4); Platelet Count 194 K/mcL (140-400); Red Blood Count 2.96 M/mcL (4.19-5.50); Red Cell Distribution Width 19.4 % (11.5-14.5); White Blood Count 15.7 K/mcL (4.3-11.1)
[2019-06-01 02:42] LABS: Calcium 8.2 mg/dL (8.6-10.3); Potassium 4.3 mEq/L (3.5-5.1)
[2019-06-01 02:43] LABS: INR 2.5; Prothrombin Time 28.9 Seconds (9.4-12.1)
[2019-06-01] MEDS: Insulin LISPRO 300 UNITS/3 ML VIAL SQ SCH ×4 (08:22→20:17)
[2019-06-01] MEDS: Multivit/Ca/Min/Fe/FA 1 TAB TABLET PO SCH (08:26)
[2019-06-01] MEDS: Sennosides/Docusate Sodium TABLET PO SCH ×2 (08:26→20:23)
[2019-06-01] MEDS: Famotidine 20 MG TABLET PO SCH (08:26)
[2019-06-01] MEDS: carvediloL 25 MG TABLET PO SCH ×2 (08:27→17:19)
[2019-06-01] MEDS: Aspirin Enteric Coated 81 MG Tablet PO SCH (08:27)
[2019-06-01] MEDS: Calcium Acetate 667 MG CAPSULE PO SCH ×3 (08:27→17:20)
[2019-06-01] MEDS: *HR* HYDROcodone/Acet 5/325 mg TABLET PO PRN ×2 (08:34→14:51)
[2019-06-01] MEDS: DAPTOMYCIN IVPB SCH (17:20)
[2019-06-01] MEDS: SODIUM CHLORIDE 0.9% IVPB SCH (17:20)
[2019-06-01] MEDS: Insulin DETEMIR 100 UNIT/ML X5UNITS SQ SCH (20:23)
[2019-06-01] MEDS: Melatonin 3 MG TABLET PO SCH (23:13)
[2019-06-02] MEDS: Piperacillin/Tazobactam 3.375 GM in 0.9 % Sodium Chloride Mini Bag 100 ML IVPB SCH ×2 (01:52→15:46)
[2019-06-02 04:00] LABS: Hematocrit 27.7 % (37.5-50.1); Hemoglobin 8.6 g/dL (12.9-16.9); Mean Corpuscular Hemoglobin 28.7 pg (28.0-33.3); Mean Corpuscular Volume 92.3 fL (83.0-100.0); Mean Platelet Volume 10.1 fL (9.4-12.4); Platelet Count 220 K/mcL (140-400); Red Cell Distribution Width 19.3 % (11.5-14.5); White Blood Count 14.9 K/mcL (4.3-11.1)
[2019-06-02 04:07] LABS: INR 2.6; Prothrombin Time 29.2 Seconds (9.4-12.1)
[2019-06-02 04:15] LABS: Calcium 8.2 mg/dL (8.6-10.3); Potassium 4.8 mEq/L (3.5-5.1)
[2019-06-02] MEDS: Insulin LISPRO 300 UNITS/3 ML VIAL SQ SCH ×4 (08:18→20:55)
[2019-06-02] MEDS: carvediloL 25 MG TABLET PO SCH ×2 (08:32→16:55)
[2019-06-02] MEDS: Calcium Acetate 667 MG CAPSULE PO SCH ×3 (08:32→16:55)
[2019-06-02] MEDS: Sennosides/Docusate Sodium TABLET PO SCH ×2 (08:32→21:02)
[2019-06-02] MEDS: Famotidine 20 MG TABLET PO SCH (08:32)
[2019-06-02] MEDS: Aspirin Enteric Coated 81 MG Tablet PO SCH (08:32)
[2019-06-02] MEDS: Multivit/Ca/Min/Fe/FA 1 TAB TABLET PO SCH (08:32)
[2019-06-02] MEDS: *HR* HYDROcodone/Acet 5/325 mg TABLET PO PRN ×2 (08:35→21:52)
[2019-06-02] MEDS: Insulin DETEMIR 100 UNIT/ML X5UNITS SQ SCH (20:58)
[2019-06-02] MEDS: Melatonin 3 MG TABLET PO SCH (23:36)
[2019-06-03] MEDS: Piperacillin/Tazobactam 3.375 GM in 0.9 % Sodium Chloride Mini Bag 100 ML IVPB SCH (02:52)
[2019-06-03 03:10] LABS: Hematocrit 26.5 % (37.5-50.1); Hemoglobin 8.4 g/dL (12.9-16.9); Mean Corpuscular HGB Conc 31.7 g/dL (31.6-35.5); Mean Corpuscular Hemoglobin 28.9 pg (28.0-33.3); Mean Corpuscular Volume 91.1 fL (83.0-100.0); Mean Platelet Volume 9.7 fL (9.4-12.4); Platelet Count 217 K/mcL (140-400); Red Blood Count 2.91 M/mcL (4.19-5.50); Red Cell Distribution Width 19.1 % (11.5-14.5); White Blood Count 14.1 K/mcL (4.3-11.1)
[2019-06-03 03:18] LABS: INR 2.6; Prothrombin Time 29.1 Seconds (9.4-12.1)
[2019-06-03 03:30] LABS: Calcium 7.9 mg/dL (8.6-10.3); Potassium 4.4 mEq/L (3.5-5.1)
[2019-06-03] MEDS: carvediloL 25 MG TABLET PO SCH ×2 (07:24→17:40)
[2019-06-03] MEDS ORDERED: 0.9 % Sodium Chloride 250 ML IVC PRN (07:44)
[2019-06-03] MEDS ORDERED: 0.9 % Sodium Chloride 1,000 ML PRIME SCH (07:45)
[2019-06-03] MEDS: Insulin LISPRO 300 UNITS/3 ML VIAL SQ SCH ×4 (08:30→20:03)
[2019-06-03] MEDS ORDERED: *HR* Heparin 10,000 UNIT/10 ML VIAL IV PRN (08:33)
[2019-06-03] MEDS: *HR* HYDROcodone/Acet 5/325 mg TABLET PO PRN ×2 (08:35→19:22)
[2019-06-03] MEDS: Aspirin Enteric Coated 81 MG Tablet PO SCH (08:36)
[2019-06-03] MEDS: Calcium Acetate 667 MG CAPSULE PO SCH ×3 (08:43→17:39)
[2019-06-03] MEDS: Multivit/Ca/Min/Fe/FA 1 TAB TABLET PO SCH (08:43)
[2019-06-03] MEDS: Famotidine 20 MG TABLET PO SCH (08:43)
[2019-06-03] MEDS ORDERED: *HR* Warfarin 1 MG TABLET PO ONE (18:00)
[2019-06-03] MEDS: DAPTOMYCIN IVPB SCH (19:21)
[2019-06-03] MEDS: levoFLOXacin 750 MG/150 ML 750 MG/150 ML BAG IVPB SCH (19:21)
[2019-06-03] MEDS: SODIUM CHLORIDE 0.9% IVPB SCH (19:21)
[2019-06-03] MEDS: Insulin DETEMIR 100 UNIT/ML X5UNITS SQ SCH (20:05)
[2019-06-03] MEDS: Melatonin 3 MG TABLET PO SCH (20:05)
[2019-06-03] MEDS: Sennosides/Docusate Sodium TABLET PO SCH (22:00)
[2019-06-04 07:20] LABS: Hematocrit 27.7 % (37.5-50.1); Hemoglobin 8.8 g/dL (12.9-16.9); Mean Corpuscular HGB Conc 31.8 g/dL (31.6-35.5); Mean Corpuscular Hemoglobin 29.8 pg (28.0-33.3); Mean Corpuscular Volume 93.9 fL (83.0-100.0); Mean Platelet Volume 9.6 fL (9.4-12.4); Platelet Count 237 K/mcL (140-400); Red Blood Count 2.95 M/mcL (4.19-5.50); Red Cell Distribution Width 19.7 % (11.5-14.5); White Blood Count 11.9 K/mcL (4.3-11.1)
[2019-06-04 07:30] LABS: INR 2.4; Prothrombin Time 26.9 Seconds (9.4-12.1)
[2019-06-04 07:42] LABS: Calcium 8.2 mg/dL (8.6-10.3); Potassium 4.3 mEq/L (3.5-5.1)
[2019-06-04] MEDS: Insulin LISPRO 300 UNITS/3 ML VIAL SQ SCH ×4 (09:29→20:04)
[2019-06-04] MEDS: *HR* HYDROcodone/Acet 5/325 mg TABLET PO PRN ×2 (09:51→17:41)
[2019-06-04] MEDS: Aspirin Enteric Coated 81 MG Tablet PO SCH (09:51)
[2019-06-04] MEDS: Calcium Acetate 667 MG CAPSULE PO SCH ×3 (09:51→17:25)
[2019-06-04] MEDS: Multivit/Ca/Min/Fe/FA 1 TAB TABLET PO SCH (09:51)
[2019-06-04] MEDS: Famotidine 20 MG TABLET PO SCH (09:51)
[2019-06-04] MEDS: Sennosides/Docusate Sodium TABLET PO SCH ×2 (09:52→20:03)
[2019-06-04] MEDS: carvediloL 25 MG TABLET PO SCH ×2 (09:52→17:25)
[2019-06-04] MEDS ORDERED: *HR* Warfarin 1 MG TABLET PO ONE (18:00)
[2019-06-04] MEDS: Insulin DETEMIR 100 UNIT/ML X5UNITS SQ SCH (20:04)
[2019-06-04] MEDS: Acetaminophen 325 MG TABLET PO PRN (20:10)
[2019-06-05] MEDS: Melatonin 3 MG TABLET PO SCH ×2 (00:42→23:36)
[2019-06-05] MEDS: *HR* HYDROcodone/Acet 5/325 mg TABLET PO PRN ×3 (00:49→15:17)
[2019-06-05 05:22] LABS: Basophils % 0.2 %; Eosinophils # 0.2 K/mcL (0.0-0.6); Eosinophils % 1.9 %; Hematocrit 27.3 % (37.5-50.1); Hemoglobin 8.6 g/dL (12.9-16.9); Immature Granulocytes % 1.5 % (0-4); Lymphocytes # 1.3 K/mcL (0.6-4.6); Lymphocytes % 12.7 %; Mean Corpuscular HGB Conc 31.5 g/dL (31.6-35.5); Mean Corpuscular Hemoglobin 29.3 pg (28.0-33.3); Mean Corpuscular Volume 92.9 fL (83.0-100.0); Mean Platelet Volume 9.8 fL (9.4-12.4); Monocytes # 0.9 K/mcL (0.0-1.3); Monocytes % 8.6 %; Neutrophils # 7.6 K/mcL (1.6-8.9); Platelet Count 230 K/mcL (140-400); Red Blood Count 2.94 M/mcL (4.19-5.50); Red Cell Distribution Width 19.6 % (11.5-14.5); Segmented Neutrophils % 75.1 %; White Blood Count 10.2 K/mcL (4.3-11.1)
[2019-06-05 05:32] LABS: INR 2.2
[2019-06-05 05:39] LABS: Calcium 8.5 mg/dL (8.6-10.3); Potassium 4.7 mEq/L (3.5-5.1)
[2019-06-05] MEDS: Insulin LISPRO 300 UNITS/3 ML VIAL SQ SCH ×4 (07:45→22:00)
[2019-06-05] MEDS ORDERED: 0.9 % Sodium Chloride 250 ML IVC PRN (07:49)
[2019-06-05] MEDS ORDERED: *HR* Heparin 10,000 UNIT/10 ML VIAL IV PRN (08:29)
[2019-06-05] MEDS: Aspirin Enteric Coated 81 MG Tablet PO SCH (08:36)
[2019-06-05] MEDS: Famotidine 20 MG TABLET PO SCH (08:36)
[2019-06-05] MEDS: Multivit/Ca/Min/Fe/FA 1 TAB TABLET PO SCH (08:36)
[2019-06-05] MEDS: Calcium Acetate 667 MG CAPSULE PO SCH ×3 (08:36→17:27)
[2019-06-05] MEDS: Sennosides/Docusate Sodium TABLET PO SCH ×2 (09:35→22:03)
[2019-06-05] MEDS: carvediloL 25 MG TABLET PO SCH ×2 (12:48→17:26)
[2019-06-05] MEDS: levoFLOXacin 750 MG/150 ML 750 MG/150 ML BAG IVPB SCH (15:12)
[2019-06-05] MEDS: DAPTOMYCIN IVPB SCH (15:14)
[2019-06-05] MEDS: SODIUM CHLORIDE 0.9% IVPB SCH (15:14)
[2019-06-05] MEDS ORDERED: *HR* Warfarin 2 MG TABLET PO ONE (18:00)
[2019-06-05] MEDS: Insulin DETEMIR 100 UNIT/ML X5UNITS SQ SCH (22:04)
[2019-06-06 04:06] LABS: INR 2.2; Prothrombin Time 25.4 Seconds (9.4-12.1)
[2019-06-06] MEDS: Famotidine 20 MG TABLET PO SCH (08:25)
[2019-06-06] MEDS: Sennosides/Docusate Sodium TABLET PO SCH (08:25)
[2019-06-06] MEDS: Calcium Acetate 667 MG CAPSULE PO SCH ×2 (08:25→12:07)
[2019-06-06] MEDS: Aspirin Enteric Coated 81 MG Tablet PO SCH (08:25)
[2019-06-06] MEDS: Multivit/Ca/Min/Fe/FA 1 TAB TABLET PO SCH (08:25)
[2019-06-06] MEDS: carvediloL 25 MG TABLET PO SCH (08:26)
[2019-06-06] MEDS: Insulin LISPRO 300 UNITS/3 ML VIAL SQ SCH ×2 (08:45→12:20)
[2019-06-06 10:34] VITALS: BP 115/69
[2019-06-06] MEDS: *HR* HYDROcodone/Acet 5/325 mg TABLET PO PRN (12:07)
[2019-06-06] MEDS ORDERED: *HR* Warfarin 2 MG TABLET PO ONE (18:00)
== END 2019-06-06 12:54 | DRG 239 ==
LOC: 2ANU 18:07 → EMEROOARM 18:07 → SUATTDRO 20:46 → 2ANU 21:30 → SUATTDRO 05-19 14:53 → 2NNU 05-23 12:40 → 2ANU 06-05 22:28
PROVIDERS: ADMIT Internal Medicine Nephrology; ATTEND Internal Medicine

== ENCOUNTER 2019-06-21 21:00 | Inpatient (IN) ==
[2019-06-22] MEDS ORDERED: Naloxone 0.4 MG/ML INJ IVP PRN (03:31)
[2019-06-22] MEDS ORDERED: 0.9 % Sodium Chloride 1,000 ML IVC SCH (03:45)
[2019-06-22] MEDS ORDERED: *HR* Dextrose 50 % in Water (Syg) 50 ML SYRINGE IVP PRN (03:52)
[2019-06-22] MEDS ORDERED: Dextrose Gel 15 GM/37.5 ML TUBE PO PRN ×2 (03:52)
[2019-06-22] MEDS ORDERED: D5% in Water 1,000 ML IVC PRN (03:52)
--- NOTE | 2019-06-22 03:53 | Internal Med History&Physical ---
Date of Encounter: 06/22/19 Time of Encounter: 01:30 Internal Medicine - H&P: HPI Chief complaint: Left leg infection Admitted From: Hospital to Hospital Transfer Plans for Post Hospital Care: Home History of present illness: Mr. Ramírez is a 74 year old male Patient was transferred from [facility] to [facility] for worsening left leg infection. He had originally been treated here with vascular surgery undergoing amputation of the left first ray and debridement of the bone of the second metatarsal of the left foot on May 29. He had gangrenous necrosis at that time and was on daptomycin and Levaquin. He was discharged on Augmentin and Levaquin and completed a 14 day post op treatment course. He was also placed on hemodialysis as well and has continued dialysis on Monday, Monday and Monday since his discharge. A CT performed on June 12 showed further wound dehiscence of the left foot, there is also a fluid collection measuring 5.3 x 2.3 x 1.1 cm. Vascular surgery was notified but did not feel further intervention was warranted. On June 21 patient was noted to have an increased white blood cell count of 17.2. Conversation was had with the hospitalist at [facility] with the patient regarding the previously mentioned recommendations for left below the knee amputation that the patient had initially refused. After further discussion the patient was agreeable for transfer to [facility] for more aggressive intervention. He was started on IV Zosyn and clindamycin prior to his transfer. Initial vital signs: Temperature 98.5, pulse 86, respiratory rate 16, blood pressure 97/54, O2 saturation 97% on room air. [facility] labs prior to transfer: CBC: White blood cell count 17.2, hemoglobin 9.0, platelets 277. BMP: Sodium 132, potassium 4.3, chloride 94, BUN 95, creatinine 2.77, GFR 23, glucose 111, calcium 82 Upon my evaluation, patient is resting comfortably in the hospital bed in no acute distress. He currently denies chest pain, abdominal pain, nausea, vomiting, diarrhea and constipation. He is a full code. Past Med Surg Social Fam HX - Past Medical History Medical history: atrial fibrillation, CHF, COPD, coronary artery disease, diabetes, dialysis, hypertension, renal disease Additional medical history: last day of dialysis 05/10/19 Psychiatric history: no psych history - Past Surgical History Surgical History: coronary bypass (CABG), AICD, pacemaker Additional surgical history: gastric bypass, toes removed from both feet - Social History Smoking Status: Former smoker Smokeless Tobacco Status: No Alcohol use: none Drug use: none - Family History Father Family Member Ethnicity: Non- Living Status: Hx Family Cardiac Disorders: Yes (triple bypass) Hx Family Respiratory Disorders: No Hx Family Cancer: Yes Hx Family GI Disorders: Yes (ulcers) Hx Family Endocrine Disorder: No Hx Family Neuromuscular Disorders: No Hx Family Neurologic Disorders: No Hx Family HEENT Disorders: No Hx Family Autoimmune Disorders: No Mother Hx Family Endocrine Disorder: Yes (DM) Internal Medicine - H&P: Meds Atorvastatin [Lipitor] 40 mg PO HS 01/31/19 [History] Insulin DETEMIR [Levemir] 15 unit SQ 2100 01/31/19 [History] Insulin DETEMIR [Levemir] 35 unit SQ 0900 01/31/19 [History] Mv,Minerals/FA/Lycopene/Ginkgo [One Daily For Men 50+ Adv Tab] 1 each PO DAILY 01/31/19 [History] Allopurinol [Zyloprim 100 MG] 100 mg PO DAILY 03/28/19 [History] Aspirin [Lo-Dose Aspirin EC] 81 mg PO DAILY 03/28/19 [History] Carvedilol 12.5 mg PO BID 03/28/19 [History] Insulin LISPRO [HumaLOG] 10 - 15 units SQ TIDWM MDD SLIDING SCALE 03/28/19 [History] Isosorbide DInitrate [Isosorbide Dinitrate] 20 mg PO TID 03/28/19 [History] Melatonin 3 mg PO HS 03/28/19 [History] Ranitidine HCl [Acid Set Up Operator Tool] 75 mg PO DAILY 03/28/19 [History] Warfarin [Coumadin] 2 mg PO DAILY 03/28/19 [History] Furosemide [Lasix] 40 mg PO BID 05/17/19 [History] Amoxicillin/Clavulanate [Augmentin] 500 mg PO 1700 #7 tablet 06/05/19 [Rx] Amoxicillin/Clavulanate [Augmentin] 500 mg PO ESCOBAR #4 tablet 06/05/19 [Rx] levoFLOXacin [Levaquin] 750 mg PO Q48H #4 tablet 06/05/19 [Rx] Allergy/AdvReac Type Severity Reaction Status Date / Time Iodinated Contrast- Oral and Allergy Hives Verified 05/16/19 23:06 IV Dye [Iodinated Contrast Media - Oral and] All Systems PM: A 10-system review of systems was performed and is negative for pertinent findings except as documented above in the HPI. - Constitutional Vitals: Temp Pulse Resp BP Pulse Ox 98.5 F 86 16 97/54 97 06/22/19 00:22 06/22/19 00:22 06/22/19 00:22 06/22/19 00:22 06/22/19 00:22 General appearance: Present: cooperative, A&O X 3, pleasant, no acute distress, answers questions appropriately Exam: - - Head Head exam: Present: normal inspection - Eye Eye exam: Present: EOMI, normal appearance - Respiratory Respiratory exam: Present: CTAB. Absent: rales, respiratory distress, rhonchi, wheezes - Cardiovascular Cardiovascular exam: Present: RRR. Absent: diastolic murmur, systolic murmur - GI/Abdominal GI/Abdominal exam: Present: normal bowel sounds, soft. Absent: tenderness - Extremities Exam Extremities exam: Present: pedal edema, tenderness, warm, radial pulses palpable and symmetrical Additional comments: Lower extremities wrapped in compression dressings bilaterally - Neurological Exam Neurological exam: Present: no focal deficits, strengths equal and symetr throughout. Absent: motor sensory deficit, facial droop, speech deficit - Skin Skin exam: Present: dry, warm - Assessment and Plan (1) Gangrene Current Visit: No Status: Acute Assessment and plan: A CT performed on June 12 showed soft tissue defect in the region of the amputation with gas internal to the defect as well as closely approximated fluid collection partially underlying the defect and extending distal to the defect. There is no gas internal to the collection however patient has had recent surgery and amputation. Has been recommended for below the knee amputation by vascular surgery, but patient has thus far been hesitant. While at [facility] was asked about this once again and he has agreed to pursue more aggressive measures. Vascular surgery was notified, and will see the patient upon arrival to [place]. He had been started on Zosyn and clindamycin prior to his transfer, no new blood cultures were obtained however before this. Based on his previous culture results, Levaquin appears to be a better alternative, with vancomycin additionally. Follow-up vascular surgery recommendations Discontinue Zosyn, clindamycin and start vancomycin and Levaquin. Monitor for worsening signs of infection Infectious disease consult for further antibiotic recommendations (2) Anasarca Current Visit: No Status: Acute Assessment and plan: Patient's lower extremity is currently in compression dressings. He is on dialysis as well. Continue dialysis Nephrology consult (3) History of atrial fibrillation Current Visit: No Status: Acute Assessment and plan: Patient is on warfarin, carvedilol at home. Holding warfarin until vascular surgery evaluation (4) Chronic disease anemia Current Visit: No Status: Chronic Assessment and plan: Secondary to peripheral vascular disease and renal injury. Patient's last hemoglobin was 9.8, which has been stable for him since the beginning of last month. Patient is on anticoagulation for atrial fibrillation, no obvious signs of significant bleeding. A.m. labs Continue to monitor (5) Diabetes Current Visit: No Status: Chronic Assessment and plan: Patient is an insulin dependent diabetic Monitor sugars every 6 hours Nothing by mouth Low dose insulin sliding scale as needed Hold home meds. Qualifiers: Diabetes mellitus type: type 2 Diabetes mellitus group home insulin use: with group home use Diabetes mellitus complication status: with circulatory complication Diabetes mellitus complication detail: with peripheral angiopathy with gangrene Qualified Code(s): E11.52 - Type 2 diabetes mellitus with diabetic peripheral angiopathy with gangrene; Z79.4 - moth exterminator (current) use of insulin (6) JAY (acute kidney injury) Current Visit: Yes Status: Acute Assessment and plan: Patient has been on dialysis for his worsening renal function. Continue dialysis Nephrology consultation Renally dose meds Avoid nephrotoxic medications (7) Peripheral vascular disease Current Visit: No Status: Acute Assessment and plan: Patient has had extensive procedures on his left lower extremity including amputations. Currently legs are in compression stockings. Vascular surgery consult, follow-up recommendations (8) DVT prophylaxis Current Visit: Yes Status: Acute Assessment and plan: Patient currently on Coumadin, last INR was 2.3. Will repeat INR, but hold off on additional doses of Coumadin until patient is evaluated by vascular surgery. - Time Spent With Patient Total time spent is greater than 50% in coordination of care (as documented) at patient's floor/unit and/or counseling patient: Greater than 35 minutes
[2019-06-22 06:06] LABS: Hematocrit 29.5 % (37.5-50.1); Hemoglobin 9.1 g/dL (12.9-16.9); Mean Corpuscular HGB Conc 30.8 g/dL (31.6-35.5); Mean Corpuscular Hemoglobin 29.5 pg (28.0-33.3); Mean Corpuscular Volume 95.8 fL (83.0-100.0); Mean Platelet Volume 9.3 fL (9.4-12.4); Platelet Count 240 K/mcL (140-400); Red Blood Count 3.08 M/mcL (4.19-5.50); Red Cell Distribution Width 18.5 % (11.5-14.5); White Blood Count 14.4 K/mcL (4.3-11.1)
[2019-06-22] MEDS: Insulin LISPRO 300 UNITS/3 ML VIAL SQ SCH ×3 (06:06→16:55)
[2019-06-22 06:14] LABS: INR 2.3
[2019-06-22 06:17] LABS: Activated Partial Thrombo Time 39.9 Seconds (26.0-36.0)
[2019-06-22 06:25] LABS: Calcium 8.4 mg/dL (8.6-10.3); Magnesium 2.5 mg/dL (1.6-2.6); Phosphorous 4.3 mg/dL (2.7-4.5); Potassium 4.1 mEq/L (3.5-5.1)
[2019-06-22] MEDS ORDERED: Clindamycin 600 MG/50 ML 600 MG/50 ML IV.SOLN IVPB SCH (08:00)
[2019-06-22] MEDS ORDERED: Piperacillin/Tazobactam 3.375 GM in 0.9 % Sodium Chloride Mini Bag 100 ML IVPB SCH ×2 (08:00→09:00)
[2019-06-22] MEDS ORDERED: levoFLOXacin 750 MG/150 ML 750 MG/150 ML BAG IVPB SCH (09:00)
[2019-06-22] MEDS ORDERED: cefTRIAXone 1,000 MG in Water for inj. (sterile) 10 ML IVP SCH (09:00)
--- NOTE | 2019-06-22 09:30 | Event Note ---
Date of Encounter: 06/22/19 Time of Encounter: 09:30 Patient seen and examined this morning at bedside. Admitted overnight for left leg infection. Recently was recommended left nzinl-luh-nleo amputation due to severe peripheral artery disease and gangrene. He was discharged with daptomycin and Levaquin. He comes back with worsening infection. At some point he was also on dialysis but has not received for past 2 weeks approximately. Since seen at bedside with family. Somewhat sleepy but alert oriented and able to offer some history. Has severe 2-3+ pedal edema bilaterally to his lower part of abdomen. Crackles bilaterally in the lung base. Saturating well on room air. Patient on empiric antibiotics. We will continue for now with vancomycin and Levaquin. Vascular surgery consulted for possible amputation. Patient has right-sided dialysis access. Nephrology was consulted for dialysis needs. Patient has elevated INR secondary to Coumadin use for A. fib. We will give vitamin K to reverse the plan for surgery.
--- NOTE | 2019-06-22 10:58 | Vascular/Endovasc Consult Note ---
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 His toe amputation was performed by podiatry. He also has nonhealing wounds on the proximal left calf. Further revascularization will not result in limb salvage. The patient was advised once again that left above-knee amputation is recommende d. The patient reports that he was Informed that he would be getting a left below-knee amputation despite my prior recommendations via clinical notes and verbal conversations that a left above- knee amputation would be required. After a long discussion with the patient the patient is now agreeable to a left above-knee amputation. The risks, benefits and alternatives of the procedure were discussed with him and all questions were answered. He expressed understanding and wishes to proceed. He is scheduled for surgery on 06/23/2019. (2) Chronic disease anemia Current Visit: No Status: Chronic (3) Diabetes Current Visit: No Status: Chronic He was counseled regarding atherosclerotic risk factor reduction. Qualifiers: Diabetes mellitus type: type 2 Diabetes mellitus mcfp insulin use: with mcfp use Diabetes mellitus complication status: with circulatory complication Diabetes mellitus complication detail: with peripheral angiopathy with gangrene Qualified Code(s): E11.52 - Type 2 diabetes mellitus with diabetic peripheral angiopathy with gangrene; Z79.4 - termite exterminator (current) use of insulin (4) Hypertension Current Visit: No Status: Chronic Qualifiers: Hypertension type: essential hypertension Qualified Code(s): I10 - Essential (primary) hypertension - History of Present Illness Consult date: 06/22/19 Requesting physician: Oscar Issa Consult reason: Necrotic left foot and leg Chief complaint: Left lower extremity ulceration or gangrene. History of present illness: Mr. Ramírez is a 74 year old male with history of chronic kidney disease, diabetes, hypertension and hyperlipidemia, ischemic artery myopathy and perip heral vascular disease with gangrene. The patient presented with a left popliteal to posterior tibial artery bypass graft for advanced gangrene of the left forefoot and toe. The patient subsequently underwent amputation of his left great toe by podiatry. He was seen by the wound center in the amputation site was noted to have dehisced. The patient was also reported to have a nonhealing wound on the left medial calf. He was previously evaluated and a left above-knee amputation was recommended. At that time he declined any further surgery. The patient was transferred to [facility] last night due to changes in his desire to have surgery. The patient denies any fevers or chills. He denies any chest pain or shortness of breath. Past Med Surg Social Fam HX - Past Medical History Medical history: atrial fibrillation, CHF, COPD, coronary artery disease, diabetes, dialysis, hypertension, renal disease Additional medical history: last day of dialysis 05/10/19 Psychiatric history: no psych history - Past Surgical History Surgical History: coronary bypass (CABG), AICD, pacemaker Additional surgical history: gastric bypass, toes removed from both feet - Social History Smoking Status: Former smoker Smokeless Tobacco Status: No Alcohol use: none Drug use: none - Family History Father Family Member Ethnicity: Non- Living Status: Hx Family Cardiac Disorders: Yes (triple bypass) Hx Family Respiratory Disorders: No Hx Family Cancer: Yes Hx Family GI Disorders: Yes (ulcers) Hx Family Endocrine Disorder: No Hx Family Neuromuscular Disorders: No Hx Family Neurologic Disorders: No Hx Family HEENT Disorders: No Hx Family Autoimmune Disorders: No Mother Hx Family Endocrine Disorder: Yes (DM) Medications and Allergies Atorvastatin [Lipitor] 40 mg PO HS 01/31/19 [History] Insulin DETEMIR [Levemir] 15 unit SQ 2100 01/31/19 [History] Insulin DETEMIR [Levemir] 35 unit SQ 0900 01/31/19 [History] Mv,Minerals/FA/Lycopene/Ginkgo [One Daily For Men 50+ Adv Tab] 1 each PO DAILY 01/31/19 [History] Allopurinol [Zyloprim 100 MG] 100 mg PO DAILY 03/28/19 [History] Aspirin [Lo-Dose Aspirin EC] 81 mg PO DAILY 03/28/19 [History] Carvedilol 12.5 mg PO BID 03/28/19 [History] Insulin LISPRO [HumaLOG] 10 - 15 units SQ TIDWM MDD SLIDING SCALE 03/28/19 [History] Isosorbide DInitrate [Isosorbide Dinitrate] 20 mg PO TID 03/28/19 [History] Melatonin 3 mg PO HS 03/28/19 [History] Ranitidine HCl [Acid Learning Design Specialist] 75 mg PO DAILY 03/28/19 [History] Warfarin [Coumadin] 2 mg PO DAILY 03/28/19 [History] Furosemide [Lasix] 40 mg PO BID 05/17/19 [History] Amoxicillin/Clavulanate [Augmentin] 500 mg PO 1700 #7 tablet 06/05/19 [Rx] Amoxicillin/Clavulanate [Augmentin] 500 mg PO ESCOBAR #4 tablet 06/05/19 [Rx] levoFLOXacin [Levaquin] 750 mg PO Q48H #4 tablet 06/05/19 [Rx] Allergy/AdvReac Type Severity Reaction Status Date / Time Iodinated Contrast- Oral and Allergy Hives Verified 05/16/19 23:06 IV Dye [Iodinated Contrast Media - Oral and] All Systems Review: The remainder of the systems were reviewed and are negative - Constitutional Constitutional: no chills, no fever(s) - Cardiovascular Cardiovascular: no chest pain at rest, no dyspnea at rest Exam Vital Signs, Last 4 Hours Temp Pulse Resp BP Pulse Ox 06/22/19 10:37 98.0 F 92 16 97/60 97 General: Present: Conversant, No Apparent Distress HEENT: Present: Pupils equal Neck: Absent: JVD, Lymphadenopathy Cardiac: Present: Reg Rate and Rhythm Lungs: Present: Normal Breath Sounds Neuro: Present: Alert and responsive, No focal deficits noted Abdomen: Present: Soft, Non-tender Vascular: Present: Normal capillary refill (Right lower extremity), Cyanosis, Edema (edema bilateral lower extremity) Skin: Present: Wound/ulcer(s) (Left forefoot ulceration with gangrenous changes, left distal calf incision healed, left proximal calf incision open with viable margins and no necrotic tissue, serous drainage noted) Consult Discharge Plan - Plan Referrals: Gildardo Campuzano DO [Primary Care Provider] -
--- NOTE | 2019-06-22 11:32 | Nephrology Consult Note ---
Date of Encounter: 06/22/19 Time of Encounter: 10:00 Assessment and Plan (1) CKD (chronic kidney disease), stage IV Current Visit: Yes Status: Chronic He was just weaned off dialysis per report. I logged in the [facility] mobile kerrie and the last dialysis encounter on 06/14/19 had indicated that he was to continue HD, so I presume that there was a verbal order to pause his dialysis treatments (will have request more medical records on Monday - [facility] [place] [place] today and tomorrow). His current labs indicate stage IV CKD and so I will not resume dialysis at this point until more info is learned. Hx of peripheral edema: continue his home lasix 40mg PO BID. He has a right sided Permacath still in place and I recommend keeping it clean and dry using standard sterile techniques. Will follow with you. (2) Lower extremity edema Current Visit: No Status: Chronic 1.5 L fluid restriction. (3) Anemia Current Visit: No Status: Acute Goal hemoglobin of 10-11. Will assess for EPO and/or IV iron Qualifiers: Anemia type: unspecified type Qualified Code(s): D64.9 - Anemia, unspecified (4) Hyponatremia Current Visit: No Status: Acute Will monitor; rec slow rate of correction. (5) Peripheral vascular disease Current Visit: No Status: Acute Appreciate Vascular Surgery (6) Hypertension Current Visit: Yes Status: Chronic Titrate antihypertensive as needed. Qualifiers: Hypertension type: essential hypertension Qualified Code(s): I10 - Essential (primary) hypertension History of Present Illness - Reason for Consult Consult date: 06/22/19 Acute Kidney Injury Requesting physician: Jaycee Phillips - Chief Complaint JAY on CKD and recently on intermitent dialysis - History of Present Illness The patient is a very pleasant 74-year-old male with a past medical history of renal failure, peripheral vascular disease with wounds of the lower extremities, hypertension, and et al who was admitted with a worsening left lower extremity / leg wound. Nephrology was consulted because he has been receiving dialysis thrice weekly at the [facility] in [place], [place]. His family member thought that he may be in the process of weaning off dialysis, but on Monday his dialysis unit is not open, so I will have to await further records for details on Monday. The last encounter listed in the [facility] mobile kerrie system did not indicate stopping dialysis. He reported having fatigue, some mild nausea, and diminished appetite. His wounds have been worsening over weeks and especially so over the last few days: Vascular Surgery was consulted for potential surgery/amputation. He did not affirm active chest pain or shortness of breath, though he is wearing oxygen per nasal cannula. He typically dialyzes for about 3 to 3-1/2 hours via a right sided permacath. He has chronic lower extremity edema. He was admitted in May, and I reviewed the [facility] [employer] labs, vital signs, progress notes and imaging. Past Med Surg Social Fam HX - Past Medical History Medical history: atrial fibrillation, CHF, COPD, coronary artery disease, diabetes, dialysis, hypertension, renal disease Additional medical history: last day of dialysis 05/10/19 Psychiatric history: no psych history - Past Surgical History Surgical History: coronary bypass (CABG), AICD, pacemaker Additional surgical history: gastric bypass, toes removed from both feet - Social History Smoking Status: Former smoker Smokeless Tobacco Status: No Alcohol use: none Drug use: none - Family History Father Family Member Ethnicity: Non- Living Status: Hx Family Cardiac Disorders: Yes (triple bypass) Hx Family Respiratory Disorders: No Hx Family Cancer: Yes Hx Family GI Disorders: Yes (ulcers) Hx Family Endocrine Disorder: No Hx Family Neuromuscular Disorders: No Hx Family Neurologic Disorders: No Hx Family HEENT Disorders: No Hx Family Autoimmune Disorders: No Mother Hx Family Endocrine Disorder: Yes (DM) Medications and Allergies Atorvastatin [Lipitor] 40 mg PO HS 01/31/19 [History] Insulin DETEMIR [Levemir] 15 unit SQ 2100 01/31/19 [History] Insulin DETEMIR [Levemir] 35 unit SQ 0900 01/31/19 [History] Mv,Minerals/FA/Lycopene/Ginkgo [One Daily For Men 50+ Adv Tab] 1 each PO DAILY 01/31/19 [History] Allopurinol [Zyloprim 100 MG] 100 mg PO DAILY 03/28/19 [History] Aspirin [Lo-Dose Aspirin EC] 81 mg PO DAILY 03/28/19 [History] Carvedilol 12.5 mg PO BID 03/28/19 [History] Insulin LISPRO [HumaLOG] 10 - 15 units SQ TIDWM MDD SLIDING SCALE 03/28/19 [History] Melatonin 3 mg PO HS 03/28/19 [History] Ranitidine HCl [Acid On Line Csr] 75 mg PO DAILY 03/28/19 [History] Warfarin [Coumadin] 2 mg PO DAILY 03/28/19 [History] Furosemide [Lasix] 40 mg PO BID 05/17/19 [History] OxyCODONE Immed Rel [Roxicodone 5 MG] 10 mg PO Q4HR PRN 3 Days #12 tablet 06/25/19 [Rx] Allergy/AdvReac Type Severity Reaction Status Date / Time Iodinated Contrast- Oral and Allergy Hives Verified 06/22/19 14:42 IV Dye [Iodinated Contrast Media - Oral and] Review of Systems All Systems: reviewed and no additional remarkable complaints except as stated Exam - Vital Signs Vital signs: Initial Vital Signs Temp Pulse Resp BP Pulse Ox 98.5 F 86 16 97/54 97 06/22/19 00:22 06/22/19 00:22 06/22/19 00:22 06/22/19 00:22 06/22/19 00:22 Vital Signs - Last 8 Hours Temp Pulse Resp BP Pulse Ox 06/22/19 10:37 98.0 F 92 16 97/60 97 06/22/19 06:37 98.2 F 95 16 105/61 96 Intake and Output 06/21/19 06/22/19 06/22/19 23:59 07:59 15:59 Output Total 300 / 300 Balance -300 / -300 Output: Urine 300 / 300 Other: Weight 102.1 kg Blood Glucose* 138 Patient Weight 06/22/19 23:59 Weight 102.1 kg - General Appearance General appearance: well-developed, appears started age, cachectic, fatigue, frail EENT: ATNC, PERRL, mucous membranes moist Neck: no JVD, supple Respiratory: no kyphosis, clear Cardiology: edema (bilateral 1+ pretibial pitting edema), regular rate, regular rhythm, normal S1, normal S2 - Dialysis Access Dialysis Vascular Access: Venous Catheter (right sided Permacath with clear exit site) Gastrointestinal: normoactive bowel sounds, no guarding Integumentary: ecchymotic, chronic venous stasis Neurologic: no focal deficit, no asterixis, alert and oriented x3 Musculoskeletal: deformities Psychiatric: mood/affect appropriate, cooperative Results - Lab Results 06/26/19 04:35 06/26/19 04:35 Most recent lab results 06/22/19 05:55 Calcium 8.4 L Phosphorus 4.3 Magnesium 2.5 Consult Discharge Plan - Plan Referrals: Nathanael Holbrook MD [Partnered Physician] - (4 weeks) Gildardo Campuzano DO [Primary Care Provider] - (ECF) Prescriptions: OxyCODONE Immed Rel [Roxicodone 5 MG] 10 mg PO Q4HR PRN 3 Days #12 tablet PRN Reason: Severe pain
[2019-06-22] MEDS ORDERED: *HR* Phytonadione 5 MG TABLET PO ONE (13:49)
[2019-06-23] MEDS: Insulin LISPRO 300 UNITS/3 ML VIAL SQ SCH ×5 (01:29→21:03)
[2019-06-23 06:44] LABS: Basophils % 0.2 %; Eosinophils % 0.1 %; Hematocrit 30.6 % (37.5-50.1); Hemoglobin 9.5 g/dL (12.9-16.9); Immature Granulocytes % 1.2 % (0-4); Lymphocytes % 5.7 %; Mean Corpuscular Hemoglobin 29.4 pg (28.0-33.3); Mean Corpuscular Volume 94.7 fL (83.0-100.0); Mean Platelet Volume 9.4 fL (9.4-12.4); Monocytes # 1.1 K/mcL (0.0-1.3); Monocytes % 6.7 %; Neutrophils # 14.6 K/mcL (1.6-8.9); Platelet Count 291 K/mcL (140-400); Red Blood Count 3.23 M/mcL (4.19-5.50); Red Cell Distribution Width 18.1 % (11.5-14.5); Segmented Neutrophils % 86.1 %; White Blood Count 16.9 K/mcL (4.3-11.1)
[2019-06-23 06:51] LABS: INR 1.8; Prothrombin Time 20.9 Seconds (9.4-12.1)
[2019-06-23 07:01] LABS: Calcium 8.4 mg/dL (8.6-10.3); Potassium 4.6 mEq/L (3.5-5.1)
--- NOTE | 2019-06-23 07:10 | Anesthesia Evaluation PreOp ---
Date of Encounter: 06/23/19 Time of Encounter: 07:30 - Past History Planned Operation: Left AKA Cardiac History: CHF, HTN, Arrhythmia (AFib on Coumadin), Cardiac Surgery (CA BG), Pacemaker/ICD, Other (CAD PVD (Pop-Tib Bypass) Anemia) Pulmonary History: Former smoker, COPD, MISA Dx (non compliant with CPAP) PROGRAM MANAGEMENT MANAGER History: Denies Any Significant HX Other Medical History: Renal (Stage 4 CKD, not dialyzed), Diabetes Type II Anesthesia History: No Prior Anesthetic Complications Alcohol Use: none Drug use: none Medications and Allergies Atorvastatin [Lipitor] 40 mg PO HS 01/31/19 [History] Insulin DETEMIR [Levemir] 15 unit SQ 2100 01/31/19 [History] Insulin DETEMIR [Levemir] 35 unit SQ 0900 01/31/19 [History] Mv,Minerals/FA/Lycopene/Ginkgo [One Daily For Men 50+ Adv Tab] 1 each PO DAILY 01/31/19 [History] Allopurinol [Zyloprim 100 MG] 100 mg PO DAILY 03/28/19 [History] Aspirin [Lo-Dose Aspirin EC] 81 mg PO DAILY 03/28/19 [History] Carvedilol 12.5 mg PO BID 03/28/19 [History] Insulin LISPRO [HumaLOG] 10 - 15 units SQ TIDWM MDD SLIDING SCALE 03/28/19 [History] Isosorbide DInitrate [Isosorbide Dinitrate] 20 mg PO TID 03/28/19 [History] Melatonin 3 mg PO HS 03/28/19 [History] Ranitidine HCl [Acid Pullman Car Clerk] 75 mg PO DAILY 03/28/19 [History] Warfarin [Coumadin] 2 mg PO DAILY 03/28/19 [History] Furosemide [Lasix] 40 mg PO BID 05/17/19 [History] Allergy/AdvReac Type Severity Reaction Status Date / Time Iodinated Contrast- Oral and Allergy Hives Verified 06/22/19 14:42 IV Dye [Iodinated Contrast Media - Oral and] - Meds/Allergy Pre-op Review Medications Reviewed: Yes Allergies Reviewed: Yes Beta Blockers on Current Med List: No Anesthesia Results - Labs 06/23/19 06:30 06/23/19 06:30 - Imaging EKG: report reviewed (Ventricular Pacemaker) Additional studies: ECHO 2019 limited views, grossly moderate reduced EF Anesthesia Exam O2 Sat O2 Sat by Pulse Oximetry 98 O2 Sat by Pulse Oximetry 98 O2 Sat by Pulse Oximetry 97 O2 Sat by Pulse Oximetry 97 Vital Signs Temp Pulse Resp BP Pulse Ox 98.5 F 86 16 97/54 97 06/22/19 00:22 06/22/19 00:22 06/22/19 00:22 06/22/19 00:22 06/22/19 00:22 Height: 5'11 Weight: 225 lbs NPO (# of Hours): MN Pain Scale: 1 - HEENT Pupil (Motor): Pupils equal, EOMI Mallampati: II Teeth: Edentulous Oral Opening: Greater than 3 - PROGRAM MANAGEMENT MANAGER LOC: Oriented PROGRAM MANAGEMENT MANAGER Motor: Normal RUE, Normal LUE, Normal RLE, Normal LLE, Normal Face PROGRAM MANAGEMENT MANAGER Sensory: Normal: RUE, LUE, RLE, Face, Deficit: LLE (neuropathic) - Cardiac Rhythm: Regular Murmur: None JVD: No Carotid Bruit: No - Pulmonary Breath Sounds: bilateral Clear Respiratory Effort: Symmetrical Anesthesia Assess/Plan ASA Score: 4 (CAD PVD HTN AFib DM CKD) Level of consciousness: Cooperative, Oriented Anesthetic Plan: General, Regional Nerve Block Regional Nerve Block Plan: Femoral, Other (Sciatic) Autologous Blood: No Monitoring Plan: Standard Monitors Recovery Plan: PACU (Discussed GA, possible RA, agrees to proceed)
[2019-06-23] MEDS ORDERED: Dexamethasone 4 MG/ML VIAL ONE (07:30)
[2019-06-23] MEDS ORDERED: *HR* Propofol 200 MG/20 ML VIAL IVP ONE (07:30)
[2019-06-23] MEDS ORDERED: Lidocaine -MPF 4% 5 ML AMPUL ONE (07:30)
[2019-06-23] MEDS ORDERED: Ondansetron 4 MG/2 ML VIAL ONE (07:30)
[2019-06-23] MEDS ORDERED: *HR* Succinylcholine 200 MG/10 ML VIAL IVP ONE (07:30)
[2019-06-23] MEDS ORDERED: *HR* FentaNYL (PF) 100 MCG/2 ML VIAL ONE (07:30)
[2019-06-23] MEDS ORDERED: Lidocaine -MPF 2% 2 ML VIAL ONE (07:30)
[2019-06-23] MEDS ORDERED: *HR* PHENYLEPHRINE 1,000 MCG/10 ML SYRINGE IVP ONE (07:31)
[2019-06-23] MEDS ORDERED: *HR* Phenylephrine 10 MG/ML VIAL ONE (07:31)
[2019-06-23] MEDS ORDERED: Lidocaine HCL 4 ML Topical Solution (Laryng-O-Jet Kit Sterile Pak) TP ONE (07:31)
[2019-06-23] MEDS ORDERED: *HR* Remifentanil 2 MG VIAL IVP ONE (07:32)
[2019-06-23] MEDS ORDERED: Neostigmine Methylsulfate 3 MG/3 ML SYRINGE ONE (07:36)
[2019-06-23] MEDS ORDERED: Ropivacaine/PF 0.5% 30 ML VIAL ONE (08:48)
[2019-06-23] MEDS ORDERED: *HR* Midazolam HCl 2 MG/2 ML VIAL ONE (08:51)
--- NOTE | 2019-06-23 08:54 | Nephrology Progress Note ---
Date of Encounter: 06/23/19 Time of Encounter: 07:20 - Assessment and Plan (1) CKD (chronic kidney disease), stage IV Current Visit: Yes Status: Chronic GFR at 20. I'll plan to contact [facility] in [place], [place], for more medical records when they are open on Monday. Continue to follow a renal protective strategy with strict I's and O's, daily weights, renal dosing, and avoidance of nephrotoxic agents as able. He should be on a renal diet. Will continue to follow with you. Thank you (2) Lower extremity edema Current Visit: No Status: Chronic 1.5 L fluid restriction. (3) Anemia Current Visit: No Status: Acute Goal hemoglobin of 10-11. Will assess for EPO and/or IV iron Qualifiers: Anemia type: unspecified type Qualified Code(s): D64.9 - Anemia, unspeci fied (4) Hyponatremia Current Visit: No Status: Acute Will monitor; rec slow rate of correction. (5) Peripheral vascular disease Current Visit: No Status: Acute Appreciate Vascular Surgery (6) Hypertension Current Visit: Yes Status: Chronic Qualifiers: Hypertension type: essential hypertension Qualified Code(s): I10 - Essential (primary) hypertension Subjective Principal diagnosis: ESRD Interval history: The patient was seen and examined on June 23, and his family member was present at the bedside and provided most of the history as he was sleeping. He has not had vomiting, diarrhea or chest pain. He is being prepared for surgery on Monday or amputation of his left LE wound Objective - Vital Signs Vital signs: Vital Signs Temp Pulse Resp BP Pulse Ox 06/23/19 01:31 97.8 F 103 16 102/59 98 06/22/19 20:13 98.1 F 88 17 107/65 98 06/22/19 15:35 97.9 F 89 19 106/66 97 06/22/19 10:37 98.0 F 92 16 97/60 97 Intake and Output 06/22/19 06/23/19 06/23/19 23:59 07:59 15:59 Other: Stool Size Large Stool Consistency soft Stool Characteristics Normal for Patient Stool Color Brown # Voids 1 Blood Glucose* 233 200 - General Appearance Exam: General appearance: well-developed, appears started age, cachectic, fatigue, frail EENT: ATNC, PERRL, mucous membranes moist Neck: no JVD, supple Respiratory: no kyphosis, clear Cardiology: edema (bilateral 1+ pretibial pitting edema), regular rate, regular rhythm, normal S1, normal S2 - Dialysis Access Dialysis Vascular Access: Venous Catheter (right sided Permacath with clear exit site) Gastrointestinal: normoactive bowel sounds, no guarding Integumentary: ecchymotic, chronic venous stasis Neurologic: no focal deficit, no asterixis, alert and oriented x3 Musculoskeletal: deformities Psychiatric: mood/affect appropriate, cooperative - Lab 06/26/19 04:35 06/26/19 04:35 Most recent lab results 06/23/19 06:30 Calcium 8.4 L Consult Discharge Plan - Plan Referrals: Nathanael Holbrook MD [Partnered Physician] - (4 weeks) Gildardo Campuzano DO [Primary Care Provider] - ([facility]) Prescriptions: OxyCODONE Immed Rel [Roxicodone 5 MG] 10 mg PO Q4HR PRN 3 Days #12 tablet PRN Reason: Severe pain
[2019-06-23] MEDS ORDERED: Aspirin Enteric Coated 81 MG Tablet PO SCH (09:00)
--- NOTE | 2019-06-23 09:15 | Internal Med Progress Note ---
Hospitalist Progress Note - Encounter Date of Encounter: 06/23/19 Time of Encounter: 09:15 - Subjective Interval History: Seen and examined this morning. Was seen after surgery. Slightly drowsy and feeling better. Family is at bedside. Denies any any complaints including chest pain difficulty breathing or abdominal pain nausea or vomiting. - Exam Vitals: Temp Pulse Resp BP Pulse Ox 97.8 F 96 16 101/59 100 06/23/19 01:31 06/23/19 09:09 06/23/19 01:31 06/23/19 09:09 06/23/19 09:09 Exam: General: In no acute distress. drowsy Respiratory exam: no accessory muscle use. occasional wheeze. Cardiovascular exam: RRR, ceballos systolic murmur. GI/Abdominal exam: Non-tender, Non-distended, normal bowel sounds, soft, no peritoneal signs. Extremities exam: Lt AKA with dressing. Rt LE with 1+ edema with small tear on griffith without signs of infection, Rt toe amputation. Neurological exam: CN II-XII intact, AO X3, no focal deficits. Skin exam: chronic dermatitis on Rt leg - Assessment and Plan (1) Diabetes Current Visit: No Status: Chronic (2) History of atrial fibrillation Current Visit: No Status: Acute (3) Chronic disease anemia Current Visit: No Status: Chronic (4) Gangrene Current Visit: No Status: Acute (5) Peripheral vascular disease Current Visit: No Status: Acute (6) Anasarca Current Visit: No Status: Acute (7) DVT prophylaxis Current Visit: Yes Status: Acute (8) JAY (acute kidney injury) Current Visit: Yes Status: Acute - Summary of Assessment and Plan Summary of Assessment and Plan: Assessment Acute PVD with Lt Gangrene Anasarca JAY Chronic afib Chronic anemia DM Plan - Patient had surgery today with vascular and had Lt AKA. Currently on vancomycin and levaquin. Will stop it given his renal function. ID consulted. Will discuss tomorrow regarding need to continue. c/w pain control. - Recently had stopped dialysis but had significant edema on presentation. Has Rt sided permacath. c/w home lasix. Nephrology following. Awaiting further records. Strict I/O. - Had held warfarin for surgery. f/u INR. Will resume when ok with surgery. resume home betablocker tonight if BP tolerates - Hb stable. Monitor for now. No indication to transfuse for now. - accuchecks with SSI achs. Start levemir 10 BID. - Time Spent with Patient Total time spent is greater than 50% in coordination of care (as documented) at patient's floor/unit and/or counseling patient: Internal Medicine: Result - Labs CBC & Chem 7: 06/23/19 06:30 06/23/19 06:30 Labs: Short CBC 06/23/19 Range/Units 06:30 WBC 16.9 H (4.3-11.1) K/mcL Hgb 9.5 L (12.9-16.9) g/dL Hct 30.6 L (37.5-50.1) % Plt Count 291 (140-400) K/mcL Neutrophils # 14.6 H (1.6-8.9) K/mcL BMP 06/23/19 06:30 Sodium 132 L Potassium 4.6 Chloride 92 L Carbon Dioxide 29 BUN 64 H Creatinine 3.13 H Glucose 197 H Calcium 8.4 L - ABG Interpretation ABG results: PT/INR, D-dimer PT 20.9 Seconds (9.4-12.1) H 06/23/19 06:30 Consult Discharge Plan - Plan Referrals: Gildardo Campuzano, DO [Primary Care Provider] - (1) Diabetes Qualifiers: Diabetes mellitus type: type 2 Diabetes mellitus terminal carman insulin use: with terminal carman use Diabetes mellitus complication status: with circulatory complication Diabetes mellitus complication detail: with peripheral angiopathy with gangrene Qualified Code(s): E11.52 - Type 2 diabetes mellitus with diabetic peripheral angiopathy with gangrene; Z79.4 - termite control representative (current) use of insulin
[2019-06-23] MEDS ORDERED: EPHEDrine 50 MG/ML VIAL ONE (09:33)
--- NOTE | 2019-06-23 09:46 | Anesthesia Procedures ---
Date of Encounter: 06/23/19 Time of Encounter: 07:40 Procedures: Anesthesia - Nerve Block Procedure Date: 06/23/19 Time: 08:45 Pre-op Diagnosis: PVD Gangrene Left Foot Surgical Procedure: AKA Checklist: Correct Patient Identifier Correct side: Left Blood Thinner: Yes Monitor Applied: EKG, BP, Pulse Oximetry Supplemental Oxygen via Nasal Cannula (L/min): 2 Sedation: Versed (mg): 1 Sedation: Fentanyl (mcg): 50 Indication: Post Op Analgesia Pre-op Neuro Deficits: Yes (Neuropathic) Block Type: Femoral, Sciatic Catheter placed: No Depth at skin (cm): 3 Sterile Technique: Yes Ultrasound used: Yes Anatomy identified: Yes Visual spread of Local: Yes Neuro Stimulation: Yes Nerve Stimulator Range: >0.4 - 0.6 mA Blood on Needle Aspiration: No Smooth Injection of Local: Yes Pain with Injection of Local: No Prep: Chlorhexadine Needle: 22 x 50 mm Stimuplex, 21 x 100 mm Stimuplex Local: Ropivacaine Volume (cc): 30+20cc Number of Attempts: 1 Complications: None/effective block Vitals: Vital Signs/O2 Sat/Glucose, Most Current Pulse BP Pulse Ox 06/23/19 09:09 96 101/59 100 06/23/19 09:08 93 111/69 100
[2019-06-23] MEDS ORDERED: Aminoglycoside Consult 1 EACH MC ONE (10:14)
[2019-06-23] MEDS ORDERED: Ondansetron 4 MG/2 ML VIAL IVP ONE ×2 (10:35→12:56)
[2019-06-23] MEDS ORDERED: *HR* OxyCODONE Immed Rel 5 MG TABLET PO PRN (10:35)
[2019-06-23] MEDS ORDERED: *HR* Promethazine 25 MG/ML VIAL IVP PRN (10:35)
--- NOTE | 2019-06-23 11:00 | Operative Note ---
Date of procedure: 06/23/19 Pre-op diagnosis: Peripheral vascular disease with gangrene Post-op diagnosis: same Procedure: 11. Left above-knee amputation Complications: none Anesthesia: GETA Surgeon: Nathanael Holbrook Was there an driller's assistant present: No Estimated blood loss (cc): 200 Specimen: none Condition: stable Disposition: PACU Procedure in Detail: Indications: The patient is a 72-year-old male with multiple medical comorbidities including diabetes, chronic kidney disease, hypertension and hyperlipidemia who was found have severe peripheral vascular disease with gangrene. He underwent a left popliteal to tibial artery bypass graft. Despite this his left forefoot became progressively gangrenous. He required a left great toe amputation. The amputation wound did not heal. Due to his progressive ischemia amputation has been recommended. Procedure: The patient was identified in the holding area. The risks, benefits and alternatives were discussed and all questions were answered. The patient was taken to the operating room and placed in the supine position on the operating room table. After the induction of general endotracheal anesthesia, the patient was cleaned and draped in the normal sterile fashion. The planned skin incision was marked along the left thigh with a marker. The skin was incised with a #10 blade. Using a process of blunt, sharp and electrocautery dissection, the muscle fascia was traversed. Electrocautery was then used to extend the excision down to the level of the femur. The neurovascular bundle was identified. The artery and vein were dissected and clamped proximally and distally. The vessels were then divided. The nerve was then transected. The periosteum was elevated off of the femur. Using a powered saw, the femur was then transected. The artery and vein were suture ligated w ith a 0 looped suture. The nerve was grasped and transected deep within the muscle fascia. The wound was irrigated. Meticulous hemostasis was obtained through out the wound with electrocautery. The fascial layers were reapproximated with Vicryl suture. Skin was reapproximated with britton. A sterile dressing was applied. The patient was extubated and taken to the recovery room in stable condition.
--- NOTE | 2019-06-23 11:27 | Anesthesia Evaluation Post Op ---
Date of Encounter: 06/23/19 Time of Encounter: 11:26 - Vital Signs Vital Signs: Vital Signs Temperature 98.5 F 06/22/19 00:22 Pulse Rate 86 06/22/19 00:22 Respiratory Rate 16 06/22/19 00:22 Blood Pressure 97/54 06/22/19 00:22 O2 Sat by Pulse Oximetry 97 06/22/19 00:22 Temperature 97.9 F 06/23/19 10:54 Pulse Rate 90 06/23/19 11:14 Respiratory Rate 24 06/23/19 11:14 Blood Pressure 117/77 06/23/19 11:14 O2 Sat by Pulse Oximetry 97 06/23/19 11:14 - Lungs Lungs: Clear Ascult./Percussion - Airway Airway: Non-obstructed - Cardiovascular Regular Rate - Mental Status Mental Status: Alert & Oriented, Answers Appropriately - Pain Pain Scale: 0 Pain Scale used: Numeric (1 - 10) - Nausea Vomiting Nausea Vomiting: Not Present - Hydration Hydration: Ice chips - Discharge PostOp Status: Transfer Patient to floor
[2019-06-23] MEDS ORDERED: Naloxone 0.4 MG/ML INJ IVP PRN (12:56)
[2019-06-23] MEDS ORDERED: 0.9 % Sodium Chloride 1,000 ML IVC SCH (12:56)
[2019-06-23] MEDS ORDERED: Dextrose Gel 15 GM/37.5 ML TUBE PO PRN ×2 (12:56)
[2019-06-23] MEDS ORDERED: *HR* OxyCODONE Immed Rel 5 MG TABLET PO SCH (12:56)
[2019-06-23] MEDS ORDERED: *HR* HYDROcodone/Acet 5/325 mg TABLET PO SCH (12:56)
[2019-06-23] MEDS ORDERED: D5% in Water 1,000 ML IVC PRN (12:56)
[2019-06-23] MEDS ORDERED: *HR* Dextrose 50 % in Water (Syg) 50 ML SYRINGE IVP PRN (12:56)
[2019-06-23] MEDS ORDERED: Acetaminophen 325 MG TABLET PO PRN ×2 (12:56)
[2019-06-23] MEDS: Furosemide 40 MG TABLET PO SCH ×2 (13:56→21:02)
[2019-06-23] MEDS: Insulin DETEMIR 100 UNIT/ML X5UNITS SQ SCH ×2 (14:41→21:02)
[2019-06-23] MEDS ORDERED: Insulin LISPRO 300 UNITS/3 ML VIAL SQ SCH (18:00)
[2019-06-24 05:55] LABS: Basophils % 0.1 %; Hematocrit 29.3 % (37.5-50.1); Immature Granulocytes % 2.1 % (0-4); Lymphocytes # 0.8 K/mcL (0.6-4.6); Lymphocytes % 7.2 %; Mean Corpuscular HGB Conc 30.7 g/dL (31.6-35.5); Mean Corpuscular Hemoglobin 29.3 pg (28.0-33.3); Mean Corpuscular Volume 95.4 fL (83.0-100.0); Mean Platelet Volume 9.3 fL (9.4-12.4); Monocytes # 0.8 K/mcL (0.0-1.3); Monocytes % 6.6 %; Neutrophils # 9.8 K/mcL (1.6-8.9); Nucleated Red Blood Cells 0.4 /100 WBC (0); Platelet Count 303 K/mcL (140-400); Red Blood Count 3.07 M/mcL (4.19-5.50); Red Cell Distribution Width 17.8 % (11.5-14.5); White Blood Count 11.7 K/mcL (4.3-11.1)
[2019-06-24] MEDS ORDERED: *HR* Heparin 5,000 UNIT/ML VIAL SQ SCH (06:00)
[2019-06-24 06:12] LABS: Calcium 8.3 mg/dL (8.6-10.3); Potassium 5.3 mEq/L (3.5-5.1)
[2019-06-24 06:32] LABS: INR 1.5; Prothrombin Time 17.3 Seconds (9.4-12.1)
[2019-06-24] MEDS ORDERED: 0.9 % Sodium Chloride 250 ML IVC PRN (08:25)
[2019-06-24] MEDS ORDERED: 0.9 % Sodium Chloride 1,000 ML PRIME SCH (08:30)
[2019-06-24] MEDS: Insulin LISPRO 300 UNITS/3 ML VIAL SQ SCH ×4 (08:40→21:34)
[2019-06-24] MEDS: Furosemide 40 MG TABLET PO SCH ×2 (08:40→20:02)
[2019-06-24] MEDS: Aspirin Enteric Coated 81 MG Tablet PO SCH (08:40)
[2019-06-24] MEDS: Insulin DETEMIR 100 UNIT/ML X5UNITS SQ SCH ×2 (08:41→21:35)
[2019-06-24] MEDS ORDERED: levoFLOXacin 750 MG/150 ML 750 MG/150 ML BAG IVPB SCH ×2 (09:00)
--- NOTE | 2019-06-24 11:40 | Nephrology Progress Note ---
Date of Encounter: 06/24/19 Time of Encounter: 11:37 - Assessment and Plan (1) CKD (chronic kidney disease), stage IV Current Visit: Yes Status: Chronic Patient is currently considered an acute kidney injury dependent on hemodialysis. He was a kidney disease stage 4/[address] Colmenares. He was on dialysis until April of this year and it was stopped by Dr. Colmenares. He was then admitted to the hospital on May of this year and hemodialysis was continued after issues with hypervolemia. Plan on hemodialysis today, last treatment was June 20. Potassium is 5.3 today, slightly elevated. Advised renal diet. Avoid nephrotoxins and renal dose all medications. Strict I&O. Daily weights. (2) Hypertension Current Visit: No Status: Chronic Titrate antihypertensive as needed. Qualifiers: Hypertension type: essential hypertension Qualified Code(s): I10 - Essential (primary) hypertension (3) Lower extremity edema Current Visit: No Status: Chronic (4) Peripheral vascular disease Current Visit: No Status: Acute (5) Hyponatremia Current Visit: No Status: Acute Stable at 133. (6) Anemia Current Visit: No Status: Acute Hemoglobin is 9, stable. Goal hemoglobin of 10-11. Qualifiers: Anemia type: unspecified type Qualified Code(s): D64.9 - Anemia, unspecified Subjective Principal diagnosis: infected LLE Interval history: Again seen and examined. Denies chest pain or shortness of breath. Denies nausea, vomiting or diarrhea. Admits to overall feeling okay. Objective - Vital Signs Vital signs: Vital Signs Temp Pulse Resp BP Pulse Ox 06/24/19 11:34 97.8 F 73 15 100/66 95 06/24/19 08:27 98.0 F 83 15 105/68 96 06/24/19 04:51 98.1 F 84 15 107/69 97 06/24/19 00:00 97.9 F 85 16 104/69 96 06/23/19 19:34 99.0 F 70 16 120/73 97 06/23/19 16:48 98.1 F 85 16 111/65 95 Intake and Output 06/23/19 06/24/19 06/24/19 23:59 07:59 15:59 Intake Total 250 / 250 Output Total 200 / 400 50 / 50 Balance 50 / -150 -50 / -50 Intake: IV Fluids 250 / 250 Vancocin 750 MG In 0.9 % Sodium 250 / 250 Chloride 250 ML @ 250 mls/hr IVPB ONCE ONE Rx#:[id number] Output: Urine 200 / 200 50 / 50 Other: Blood Glucose* 195 111 - General Appearance General appearance: Present: well-developed, well-nourished EENT: Present: ATNC, hearing intact, vision intact Neck: Present: supple Respiratory: Present: clear Cardiology: Present: edema (Generalized edema noted to RLE and bilat upper extremities.), normal S1, normal S2 Dialysis Vascular Access: Venous Catheter (DRSG C/D/I) Gastrointestinal: Present: normoactive bowel sounds, no tenderness, no guarding Integumentary: Present: no rash, warm and dry Neurologic: Present: alert and oriented x3 Musculoskeletal: Present: no deformities, no erythema Psychiatric: Present: mood/affect appropriate, cooperative - Lab 06/24/19 05:43 06/24/19 05:43 Most recent lab results 06/24/19 05:43 Calcium 8.3 L Consult Discharge Plan - Plan Referrals: Gildardo Campuzano DO [Primary Care Provider] -
[2019-06-24] MEDS ORDERED: *HR* Heparin 10,000 UNIT/10 ML VIAL IV PRN (12:01)
--- NOTE | 2019-06-24 15:32 | Internal Med Progress Note ---
Hospitalist Progress Note - Encounter Date of Encounter: 06/24/19 Time of Encounter: 15:23 - Subjective Interval History: Patient seen and examined this morning at bedside. No acute overnight events. Denies new complaints. Feeling better. Denies any nausea vomiting or diarrhea. Denies any chest pain difficult breathing or palpitation. - Exam Vitals: Temp Pulse Resp BP Pulse Ox 98.0 F 73 18 100/62 95 06/24/19 14:25 06/24/19 11:34 06/24/19 14:25 06/24/19 14:40 06/24/19 11:34 Exam: General: In no acute distress. drowsy Respiratory exam: no accessory muscle use. occasional wheeze. Cardiovascular exam: RRR, ceballos systolic murmur. GI/Abdominal exam: Non-tender, Non-distended, normal bowel sounds, soft, no peritoneal signs. Extremities exam: Lt AKA with dressing. Rt LE with 1+ edema with small tear on griffith without signs of infection, Rt toe amputation. Neurological exam: CN II-XII intact, AO X3, no focal deficits. Skin exam: chronic dermatitis on Rt leg - Assessment and Plan (1) Diabetes Current Visit: No Status: Chronic (2) History of atrial fibrillation Current Visit: No Status: Acute (3) Chronic disease anemia Current Visit: No Status: Chronic (4) Gangrene Current Visit: No Status: Acute (5) Peripheral vascular disease Current Visit: No Status: Acute (6) Anasarca Current Visit: No Status: Acute (7) DVT prophylaxis Current Visit: Yes Status: Acute (8) JAY (acute kidney injury) Current Visit: Yes Status: Acute - Summary of Assessment and Plan Summary of Assessment and Plan: Assessment Acute PVD with Lt Gangrene- s/p Lt AKA. Anasarca JAY dependent on dialysis hyperkalemia Chronic afib Chronic anemia DM Plan - Patient had Lt AKA on 06/23/19. Antibiotics stopped. c/w pain control. - Recently had stopped dialysis but had significant edema on presentation. Has Rt sided permacath. c/w home lasix. Nephrology following. Plan for HD today. - Had held warfarin for surgery. resume coumadin. resume home betablocker tonight if BP tolerates - Hb stable. Monitor for now. No indication to transfuse for now. - accuchecks with SSI achs. c/w levemir 10 BID. - Medically stable to be discharged after dialysis. Will get PT/OT. awaiting placement by SW. - Time Spent with Patient Total time spent is greater than 50% in coordination of care (as documented) at patient's floor/unit and/or counseling patient: Internal Medicine: Result - Labs CBC & Chem 7: 06/24/19 05:43 06/24/19 05:43 Labs: Short CBC 06/24/19 Range/Units 05:43 WBC 11.7 H (4.3-11.1) K/mcL Hgb 9.0 L (12.9-16.9) g/dL Hct 29.3 L (37.5-50.1) % Plt Count 303 (140-400) K/mcL Neutrophils # 9.8 H (1.6-8.9) K/mcL BMP 06/24/19 05:43 Sodium 133 L Potassium 5.3 H Chloride 96 L Carbon Dioxide 24 BUN 80 H Creatinine 3.65 H Glucose 120 H Calcium 8.3 L - ABG Interpretation ABG results: PT/INR, D-dimer PT 17.3 Seconds (9.4-12.1) H 06/24/19 05:43 Consult Discharge Plan - Plan Referrals: Gildardo Campuzano, [Primary Care Provider] - (1) Diabetes Qualifiers: Diabetes mellitus type: type 2 Diabetes mellitus long term care phlebotomist insulin use: with care home use Diabetes mellitus complication status: with circulatory complication Diabetes mellitus complication detail: with peripheral angiopathy with gangrene Qualified Code(s): E11.52 - Type 2 diabetes mellitus with diabetic peripheral angiopathy with gangrene; Z79.4 - termite control technician (current) use of insulin
--- NOTE | 2019-06-24 17:19 | Vascular/[facility] Progress Note ---
Date of Encounter: 06/24/19 Time of Encounter: 16:50 - Assessment and plan (1) Atheroscler of autologous vein bypass graft of left leg with gangrene Current Visit: Yes Status: Acute The patient is postoperative day #1 after left above-knee amputation for peripheral vascular disease with gangrene. His bandage will remain in place for another day. He will continue with pain control. He will need discharge planning. 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 He denies any chest pain or shortness of breath. Vital Signs, Last 4 Hours Temp Resp BP 06/24/19 14:40 100/62 06/24/19 14:25 98.0 F 18 100/70 - Physical Examination HEENT: Present: Pupils equal Cardiac: Present: Reg Rate and Rhythm Lungs: Present: Normal Breath Sounds Neuro: Present: Alert and responsive Vascular: Present: Surgical incisions (Bandages dry) Abdomen: Present: Soft Results 06/24/19 05:43 06/24/19 05:43 Lab Results, Last 24 hours 06/24/19 06/24/19 06/24/19 05:43 05:43 05:43 WBC 11.7 H Hgb 9.0 L Hct 29.3 L Plt Count 303 INR 1.5 Sodium 133 L Potassium 5.3 H Chloride 96 L Carbon Dioxide 24 BUN 80 H Creatinine 3.65 H Glucose 120 H Calcium 8.3 L Consult Discharge Plan - Plan Referrals: Gildardo Campuzano DO [Primary Care Provider] -
[2019-06-24] MEDS ORDERED: *HR* Warfarin 2 MG TABLET PO ONE (18:00)
[2019-06-24] MEDS ORDERED: Warfarin perPT PO PRN (18:00)
[2019-06-25 03:49] LABS: Basophils % 0.1 %; Hemoglobin 8.7 g/dL (12.9-16.9); Immature Granulocytes % 2.9 % (0-4); Lymphocytes # 1.1 K/mcL (0.6-4.6); Lymphocytes % 9.3 %; Mean Corpuscular HGB Conc 31.1 g/dL (31.6-35.5); Mean Corpuscular Hemoglobin 29.9 pg (28.0-33.3); Mean Corpuscular Volume 96.2 fL (83.0-100.0); Mean Platelet Volume 9.4 fL (9.4-12.4); Monocytes # 1.1 K/mcL (0.0-1.3); Monocytes % 9.6 %; Nucleated Red Blood Cells 0.5 /100 WBC (0); Platelet Count 257 K/mcL (140-400); Red Blood Count 2.91 M/mcL (4.19-5.50); Segmented Neutrophils % 78.1 %; White Blood Count 11.5 K/mcL (4.3-11.1)
[2019-06-25 03:56] LABS: INR 1.7; Prothrombin Time 19.5 Seconds (9.4-12.1)
[2019-06-25 04:05] LABS: Calcium 7.8 mg/dL (8.6-10.3); Potassium 4.5 mEq/L (3.5-5.1)
[2019-06-25] MEDS: Insulin LISPRO 300 UNITS/3 ML VIAL SQ SCH ×4 (09:08→22:19)
[2019-06-25] MEDS: *HR* HYDROcodone/Acet 5/325 mg TABLET PO PRN ×2 (09:14→17:02)
[2019-06-25] MEDS: Furosemide 40 MG TABLET PO SCH ×2 (09:14→17:03)
[2019-06-25] MEDS: Aspirin Enteric Coated 81 MG Tablet PO SCH (09:14)
[2019-06-25] MEDS: Insulin DETEMIR 100 UNIT/ML X5UNITS SQ SCH ×2 (09:15→18:11)
--- NOTE | 2019-06-25 09:37 | Nephrology Progress Note ---
Date of Encounter: 06/25/19 Time of Encounter: 09:33 - Assessment and Plan (1) CKD (chronic kidney disease), stage IV Current Visit: Yes Status: Chronic Patient is currently considered an acute kidney injury dependent on hemodialysis. He was a kidney disease stage 4/[address] Colmenares. He was on dialysis until April of this year and it was stopped by Dr. Colmenares. He was then admitted to the hospital on May of this year and hemodialysis was continued after issues with hypervolemia. HD completed yesterday. Potassium is 4.5, improved. Advised renal diet. Avoid nephrotoxins and renal dose all medications. Strict I&O. Daily weights. Continue HD outpatient three times a week. With recent labs, patient could possibly be decreased to twice a week HD, since it is more fluid balance then a clearance issue. He [facility] goes to [facility]. (2) Hypertension Current Visit: Yes Status: Chronic Titrate antihypertensive as needed. Qualifiers: Hypertension type: essential hypertension Qualified Code(s): I10 - [place] l (primary) hypertension (3) Lower extremity edema Current Visit: No Status: Chronic 1.5 L fluid restriction. (4) Peripheral vascular disease Current Visit: No Status: Acute (5) Hyponatremia Current Visit: No Status: Acute Stable at 135. (6) Anemia Current Visit: No Status: Acute Hemoglobin is 8.7, stable. Goal hemoglobin of 10-11. EPO started. Qualifiers: Anemia type: unspecified type Qualified Code(s): D64.9 - Anemia, unspecified (7) Poor appetite Current Visit: Yes Status: Acute Patient c/o of no appetite. Suggest dietary for supplementation. Subjective Principal diagnosis: infected LLE Interval history: Again seen and examined. Denies chest pain or shortness of breath. Denies nausea, vomiting or diarrhea. Admits to overall feeling okay. Would like referral to [facility] for rehabilitation. Objective - Vital Signs Vital signs: Vital Signs Temp Pulse Resp BP Pulse Ox 06/25/19 08:06 97.4 F L 86 16 92/59 91 06/25/19 03:56 97.9 F 79 16 104/78 94 06/25/19 00:14 97.8 F 81 14 95/62 94 06/24/19 20:45 95 06/24/19 20:02 97.6 F 71 16 105/90 95 06/24/19 18:01 98.1 F 16 109/67 06/24/19 17:50 105/65 06/24/19 17:35 106/61 06/24/19 17:20 108/67 06/24/19 17:05 106/69 06/24/19 16:50 109/65 06/24/19 16:35 105/65 06/24/19 16:20 107/71 06/24/19 16:05 102/67 06/24/19 15:50 109/67 06/24/19 15:35 104/63 06/24/19 15:20 100/65 06/24/19 15:05 106/67 06/24/19 14:50 100/62 06/24/19 14:35 98.0 F 18 100/70 06/24/19 11:34 97.8 F 73 15 100/66 95 Intake and Output 06/24/19 06/25/19 06/25/19 23:59 07:59 15:59 Intake Total 80 / 680 Output Total 2600 / 2650 Balance -2520 / -1970 Intake: Oral 80 / 80 Output: Urine 0 / 50 Total Dialysis (HD) Output 2600 / 2600 Other: Weight 101.8 kg Blood Glucose* 108 75 Hemodialysis Net Fluid Removed 2000 (mL) Patient Weight 06/25/19 23:59 Weight 101.8 kg - General Appearance General appearance: Present: well-developed, well-nourished EENT: Present: ATNC, hearing intact, vision intact Neck: Present: supple Respiratory: Present: clear Cardiology: Present: edema (noted to abdomen and RLE.), normal S1, normal S2 Dialysis Vascular Access: Venous Catheter (DRSG C/D/I) Gastrointestinal: Present: normoactive bowel sounds, no tenderness, no guarding Integumentary: Present: no rash, warm and dry Neurologic: Present: alert and oriented x3 Musculoskeletal: Present: no deformities, no erythema Psychiatric: Present: mood/affect appropriate, cooperative - Lab 06/25/19 03:35 06/25/19 03:35 Most recent lab results 06/25/19 03:35 Calcium 7.8 L Consult Discharge Plan - Plan Referrals: Gildardo Campuzano DO [Primary Care Provider] -
[2019-06-25] MEDS: *HR* OxyCODONE Immed Rel 5 MG TABLET PO PRN ×2 (12:02→20:26)
--- NOTE | 2019-06-25 12:32 | Discharge Summary ---
- NOTES TO OUTPATIENT PROVIDER Notes to Outpatient Provider: Patient will continue dialysis per nephrology. No further antibiotics needed. Orders not resulted at time of discharge: Pending orders 06/23/19 10:47 Surgical Pathology [PTH] Routine Date of Encounter: 06/25/19 Time of Encounter: 12:30 - Discharge Diagnosis (1) Diabetes Priority: Secondary Status: Chronic Qualifiers: Diabetes mellitus type: type 2 Diabetes mellitus nursing home insulin use: with nursing home use Diabetes mellitus complication status: with circulatory complication Diabetes mellitus complication detail: with peripheral angiopathy with gangrene Qualified Code(s): E11.52 - Type 2 diabetes mellitus with diabetic peripheral angiopathy with gangrene; Z79.4 - termite control servicer (current) use of insulin (2) History of atrial fibrillation Priority: Secondary Status: Acute (3) Chronic disease anemia Priority: Secondary Status: Chronic (4) Gangrene Priority: Primary Status: Acute (5) Peripheral vascular disease Priority: Secondary Status: Acute (6) Anasarca Priority: Primary Status: Acute (7) DVT prophylaxis Priority: Secondary Status: Acute (8) JAY (acute kidney injury) Priority: Primary Status: Acute Hospital course: Mr. Ramírez is a 74 year old male with past medical history of atrial fibrillation, COPD, CAD, diabetes who was admitted for worsening left foot infection. Patient recently was treated for osteomyelitis with antibiotics. Patient was started on empiric antibiotics. Vascular surgery was consulted given left popliteal to tibial bypass. Patient was initially recommended left above knee amputation before but did not proceed however on this admission he agreed. He also had generalized anasarca with edema until lower abdominal wall. 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 Nephrology was also consulted. Patient underwent dialysis by nephrology. Patient will need outpatient dialysis at least initially. Antibiotics were stopped 2 episodes of infection is now a remote. Patient is stable to be discharged for rehabilitation which is currently being arranged. Discharge discussed with: patient, family, nurse, data center consultant - Time Spent with Patient Total time spent providing and/or coordinating discharge services: Time spent: Greater than 30 minutes (40) - Discharge Medications Prescriptions: New OxyCODONE Immed Rel [Roxicodone 5 MG] 10 mg PO Q4HR PRN 3 Days #12 tablet PRN Reason: Severe pain Continued Allopurinol [Zyloprim 100 MG] 100 mg PO DAILY Aspirin [Lo-Dose Aspirin EC] 81 mg PO DAILY Carvedilol 12.5 mg PO BID Insulin LISPRO [HumaLOG] 10 - 15 units SQ TIDWM MDD SLIDING SCALE Melatonin 3 mg PO HS Ranitidine HCl [Acid Awning Maker And Installer] 75 mg PO DAILY Warfarin [Coumadin] 2 mg PO DAILY Furosemide [Lasix] 40 mg PO BID Mv,Minerals/FA/Lycopene/Ginkgo [One Daily For Men 50+ Adv Tab] 1 each PO DAILY Insulin DETEMIR [Levemir] 15 unit SQ 2100 Insulin DETEMIR [Levemir] 35 unit SQ 0900 Atorvastatin [Lipitor] 40 mg PO HS Discontinued Isosorbide DInitrate [Isosorbide Dinitrate] 20 mg PO TID Home Medications: Atorvastatin [Lipitor] 40 mg PO HS 01/31/19 [History] Insulin DETEMIR [Levemir] 15 unit SQ 2100 01/31/19 [History] Insulin DETEMIR [Levemir] 35 unit SQ 0900 01/31/19 [History] Mv,Minerals/FA/Lycopene/Ginkgo [One Daily For Men 50+ Adv Tab] 1 each PO DAILY 01/31/19 [History] Allopurinol [Zyloprim 100 MG] 100 mg PO DAILY 03/28/19 [History] Aspirin [Lo-Dose Aspirin EC] 81 mg PO DAILY 03/28/19 [History] Carvedilol 12.5 mg PO BID 03/28/19 [History] Insulin LISPRO [HumaLOG] 10 - 15 units SQ TIDWM MDD SLIDING SCALE 03/28/19 [History] Melatonin 3 mg PO HS 03/28/19 [History] Ranitidine HCl [Acid Awning Maker And Installer] 75 mg PO DAILY 03/28/19 [History] Warfarin [Coumadin] 2 mg PO DAILY 03/28/19 [History] Furosemide [Lasix] 40 mg PO BID 05/17/19 [History] OxyCODONE Immed Rel [Roxicodone 5 MG] 10 mg PO Q4HR PRN 3 Days #12 tablet 06/25/19 [Rx] Allergies/Adverse Reactions: Allergy/AdvReac Type Severity Reaction Status Date / Time Iodinated Contrast- Oral and Allergy Hives Verified 06/22/19 14:42 IV Dye [Iodinated Contrast Media - Oral and] Date of admission: 06/22/19 03:31 Primary care physician: Gildardo Campuzano DO Consults: 06/22/19 03:52 Consult to Vascular Surgery [CONS] Routine Consulting Provider: Vascular Surgery [place] Reason for Consult: Left leg cellulitis/post op infection Call Completed: Yes 06/22/19 04:02 Consult to Nephrology [CONS] Routine Consulting Provider: Kid[facility]/MINI/DC/VIKY Reason for Consult: Patient has been on dialysis for JAY Call Completed: No 06/22/19 04:54 Consult to Infectious Diseases [CONS] Routine Consulting Provider: Infectious Disease [place] Reason for Consult: Left leg infection, antibiotic recommendations Call Completed: No 06/24/19 08:30 Consult to Dialysis [CONS] ONCE 06/24/19 09:18 Consult to Nurse Navigator [CONS] Routine Comment: hd 06/24/19 12:07 Consult to Physical Therapy [CONS] Routine Comment: Evaluate, develop and implement POC Reason for Consult: AKA Does patient have active BEDREST order?: No Is patient medically & hemodynamically stable?: Yes Patient assessed for mobility or mobilized this visit?: Yes 06/24/19 12:08 Consult to Occupational Therapy [CONS] Routine Comment: Evaluate, develop and implement POC Reason for Consult: AKA Does patient have active BEDREST order?: No Is patient medically & hemodynamically stable?: Yes Patient assessed for mobility or mobilized this visit?: Yes Discharging clinician: Jaycee Phillips - Constitutional Vitals: Temp Pulse Resp BP Pulse Ox 97.6 F 89 17 110/70 100 06/25/19 11:31 06/25/19 11:31 06/25/19 11:31 06/25/19 11:31 06/25/19 11:31 General appearance: Present: cooperative Exam: General: In no acute distress. Respiratory exam: no accessory muscle use. occasional crackles. Cardiovascular exam: RRR, ceballos systolic murmur. GI/Abdominal exam: Non-tender, Non-distended, normal bowel sounds, soft, no peritoneal signs. Extremities exam: Lt AKA with dressing. Rt LE with 1+ edema and scrotal swelling also noted. Neurological exam: CN II-XII intact, AO X3, no focal deficits. Skin exam: chronic dermatitis on Rt leg - Patient Status Disposition: Transfer SNF Condition: Fair - Discharge Instructions Follow Up With: Gildardo Campuzano DO [Primary Care Provider] - - Diet and Activity Activity: as per physical therapy
[2019-06-25] MEDS ORDERED: *HR* Warfarin 2 MG TABLET PO ONE (18:00)
--- NOTE | 2019-06-25 19:26 | Vascular/[facility] Progress Note ---
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 His bandage will remain in place for another day. He will continue with pain control. He will need discharge planning. (2) Chronic disease anemia Current Visit: Yes Status: Chronic (3) Diabetes Current Visit: Yes Status: Chronic He was counseled regarding atherosclerotic risk factor reduction. Qualifiers: Diabetes mellitus type: type 2 Diabetes mellitus ocean transportation intermediary insulin use: with assisted use Diabetes mellitus complication status: with circulatory complication Diabetes mellitus complication detail: with peripheral angiopathy with gangrene Qualified Code(s): E11.52 - Type 2 diabetes mellitus with diabetic peripheral angiopathy with gangrene; Z79.4 - keno terminal operator (current) use of insulin (4) Hypertension Current Visit: Yes Status: Chronic Qualifiers: Hypertension type: essential hypertension Qualified Code(s): I10 - Essential (primary) hypertension - Subjective Interval history: The patient reports adequate pain control. He had no acute issues overnight He denies any chest pain or shortness of breath. Vital Signs, Last 4 Hours Temp Pulse Resp BP Pulse Ox 06/25/19 16:45 98.0 F 79 16 108/69 100 - Physical Examination General: Present: Conversant Cardiac: Present: Reg Rate and Rhythm Lungs: Present: Normal Breath Sounds Neuro: Present: Alert and responsive Vascular: Present: Surgical incisions (incision clean, dry and intact without erythema or drainage, no hematoma) Abdomen: Present: Soft Skin: Present: No rashes noted on visualized skin Results 06/25/19 03:35 06/25/19 03:35 Lab Results, Last 24 hours 06/25/19 06/25/19 06/25/19 03:35 03:35 03:35 WBC 11.5 H Hgb 8.7 L Hct 28.0 L Plt Count 257 INR 1.7 Sodium 135 L Potassium 4.5 Chloride 97 L Carbon Dioxide 28 BUN 49 H Creatinine 2.87 H Glucose 78 Calcium 7.8 L Consult Discharge Plan - Plan Referrals: Gildardo Campuzano DO [Primary Care Provider] - (ECF) Prescriptions: OxyCODONE Immed Rel [Roxicodone 5 MG] 10 mg PO Q4HR PRN 3 Days #12 tablet PRN Reason: Severe pain
--- NOTE | 2019-06-25 20:01 | Vascular/[facility] Progress Note ---
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 His incision is healing well. He will continue with daily dressing changes with 4 x 4 gauze, Kerlix and a comfortably wrapped Pavel bandage. He will follow up in 4 weeks to assess for staple removal. He may be discharged from a vascular surgery perspective. (2) Chronic disease anemia Current Visit: Yes Status: Chronic (3) Diabetes Current Visit: Yes Status: Chronic He was counseled regarding atherosclerotic risk factor reduction. Qualifiers: Diabetes mellitus type: type 2 Diabetes mellitus group home insulin use: with marine oil terminal superintendent use Diabetes mellitus complication status: with circulatory complication Diabetes mellitus complication detail: with peripheral angiopathy with gangrene Qualified Code(s): E11.52 - Type 2 diabetes mellitus with diabetic peripheral angiopathy with gangrene; Z79.4 - care home (current) use of insulin (4) Hypertension Current Visit: Yes Status: Chronic Qualifiers: Hypertension type: essential hypertension Qualified Code(s): I10 - Essential (primary) hypertension - Subjective Interval history: The patient reports adequate pain control. He had no acute issues overnight He denies any chest pain or shortness of breath. Vital Signs, Last 4 Hours Temp Pulse Resp BP Pulse Ox 06/25/19 19:41 98.0 F 76 16 89/53 95 06/25/19 16:45 98.0 F 79 16 108/69 100 - Physical Examination General: Present: Conversant Cardiac: Present: Reg Rate and Rhythm Lungs: Present: Normal Breath Sounds Neuro: Present: Alert and responsive Vascular: Present: Surgical incisions (Incision clean, dry and intact without erythema or drainage, no hematoma) Abdomen: Present: Soft Results 06/25/19 03:35 06/25/19 03:35 Lab Results, Last 24 hours 06/25/19 06/25/19 06/25/19 03:35 03:35 03:35 WBC 11.5 H Hgb 8.7 L Hct 28.0 L Plt Count 257 INR 1.7 Sodium 135 L Potassium 4.5 Chloride 97 L Carbon Dioxide 28 BUN 49 H Creatinine 2.87 H Glucose 78 Calcium 7.8 L Consult Discharge Plan - Plan Referrals: Gildardo Campuzano DO [Primary Care Provider] - (ECF) Nathanael Holbrook MD [Partnered Physician] - (4 weeks) Prescriptions: OxyCODONE Immed Rel [Roxicodone 5 MG] 10 mg PO Q4HR PRN 3 Days #12 tablet PRN Reason: Severe pain
[2019-06-26] MEDS: *HR* HYDROcodone/Acet 5/325 mg TABLET PO PRN ×4 (03:00→17:57)
[2019-06-26 04:56] LABS: Basophils % 0.2 %; Eosinophils # 0.1 K/mcL (0.0-0.6); Eosinophils % 0.9 %; Hematocrit 29.5 % (37.5-50.1); Hemoglobin 9.2 g/dL (12.9-16.9); Immature Granulocytes % 2.4 % (0-4); Lymphocytes # 1.1 K/mcL (0.6-4.6); Lymphocytes % 7.4 %; Mean Corpuscular HGB Conc 31.2 g/dL (31.6-35.5); Mean Corpuscular Hemoglobin 29.4 pg (28.0-33.3); Mean Corpuscular Volume 94.2 fL (83.0-100.0); Mean Platelet Volume 9.7 fL (9.4-12.4); Monocytes # 1.2 K/mcL (0.0-1.3); Monocytes % 8.6 %; Neutrophils # 11.6 K/mcL (1.6-8.9); Platelet Count 284 K/mcL (140-400); Red Blood Count 3.13 M/mcL (4.19-5.50); Red Cell Distribution Width 17.9 % (11.5-14.5); Segmented Neutrophils % 80.5 %; White Blood Count 14.4 K/mcL (4.3-11.1)
[2019-06-26 05:04] LABS: INR 1.9; Prothrombin Time 22.1 Seconds (9.4-12.1)
[2019-06-26 05:17] LABS: Calcium 7.7 mg/dL (8.6-10.3); Potassium 4.6 mEq/L (3.5-5.1)
[2019-06-26] MEDS ORDERED: 0.9 % Sodium Chloride 250 ML IVC PRN (06:58)
[2019-06-26] MEDS ORDERED: *HR* Heparin 10,000 UNIT/10 ML VIAL IV PRN (09:49)
[2019-06-26] MEDS: Insulin LISPRO 300 UNITS/3 ML VIAL SQ SCH ×4 (09:55→21:19)
[2019-06-26] MEDS: Furosemide 40 MG TABLET PO SCH ×2 (10:04→17:14)
[2019-06-26] MEDS: Aspirin Enteric Coated 81 MG Tablet PO SCH (10:04)
[2019-06-26] MEDS: Insulin DETEMIR 100 UNIT/ML X5UNITS SQ SCH ×2 (10:24→21:22)
--- NOTE | 2019-06-26 12:28 | Infectious Disease Consult ---
Infectious Disease-Consult - Data of Consult Requesting Physician: Jaycee Phillips MD Primary Care Provider: Glidardo Campuzano, - Results CBC & Chem 7: 06/26/19 04:35 06/26/19 04:35 - Exam Vitals: Temp Pulse Resp BP Pulse Ox 98.5 F 91 18 115/65 100 06/26/19 09:30 06/26/19 06:50 06/26/19 09:30 06/26/19 12:15 06/26/19 06:50 Atorvastatin [Lipitor] 40 mg PO HS 01/31/19 [History] Insulin DETEMIR [Levemir] 15 unit SQ 2100 01/31/19 [History] Insulin DETEMIR [Levemir] 35 unit SQ 0900 01/31/19 [History] Mv,Minerals/FA/Lycopene/Ginkgo [One Daily For Men 50+ Adv Tab] 1 each PO DAILY 01/31/19 [History] Allopurinol [Zyloprim 100 MG] 100 mg PO DAILY 03/28/19 [History] Aspirin [Lo-Dose Aspirin EC] 81 mg PO DAILY 03/28/19 [History] Carvedilol 12.5 mg PO BID 03/28/19 [History] Insulin LISPRO [HumaLOG] 10 - 15 units SQ TIDWM MDD SLIDING SCALE 03/28/19 [History] Melatonin 3 mg PO HS 03/28/19 [History] Ranitidine HCl [Acid Manufacturers Representative] 75 mg PO DAILY 03/28/19 [History] Warfarin [Coumadin] 2 mg PO DAILY 03/28/19 [History] Furosemide [Lasix] 40 mg PO BID 05/17/19 [History] OxyCODONE Immed Rel [Roxicodone 5 MG] 10 mg PO Q4HR PRN 3 Days #12 tablet 06/25/19 [Rx] Allergy/AdvReac Type Severity Reaction Status Date / Time Iodinated Contrast- Oral and Allergy Hives Verified 06/22/19 14:42 IV Dye [Iodinated Contrast Media - Oral and] Past Med Surg Social Fam HX - Past Medical History Medical history: atrial fibrillation, CHF, COPD, coronary artery disease, diabetes, dialysis, hypertension, renal disease Additional medical history: last day of dialysis 05/10/19 Psychiatric history: no psych history - Past Surgical History Surgical History: coronary bypass (CABG), AICD, pacemaker Additional surgical history: gastric bypass, toes removed from both feet - Social History Smoking Status: Former smoker Smokeless Tobacco Status: No Alcohol use: none Drug use: none - Family History Father Family Member Ethnicity: Non- Living Status: Hx Family Cardiac Disorders: Yes (triple bypass) Hx Family Respiratory Disorders: No Hx Family Cancer: Yes Hx Family GI Disorders: Yes (ulcers) Hx Family Endocrine Disorder: No Hx Family Neuromuscular Disorders: No Hx Family Neurologic Disorders: No Hx Family HEENT Disorders: No Hx Family Autoimmune Disorders: No Mother Hx Family Endocrine Disorder: Yes (DM) Consult Discharge Plan - Plan Referrals: Nathanael Holbrook MD [Partnered Physician] - 07/24/19 2:20 pm (4 weeks) Gildardo Campuzano DO [Primary Care Provider] - (ECF) Prescriptions: OxyCODONE Immed Rel [Roxicodone 5 MG] 10 mg PO Q4HR PRN 3 Days #12 tablet PRN Reason: Severe pain
--- NOTE | 2019-06-26 12:30 | Nephrology Progress Note ---
Date of Encounter: 06/26/19 Time of Encounter: 12:28 - Assessment and Plan (1) CKD (chronic kidney disease), stage IV Current Visit: Yes Status: Chronic Patient is currently considered an acute kidney injury dependent on hemodialysis. He was a kidney disease stage 4/[address] Colmean[address]. He was on dialysis until April of this year and it was stopped by Dr. Colmenares. He was then admitted to the hospital on May of this year and hemodialysis was continued after issues with hypervolemia. HD completed yesterday. Potassium is 4.6 , improved. Advised renal diet. Avoid nephrotoxins and renal dose all medications. Strict I&O. Daily weights. Continue HD outpatient three times a week. With recent labs, patient could possibly be decreased to twice a week HD, since it is more fluid balance then a clearance issue. He currently goes to [facility]. A 24-hour urine has been ordered for outpatient, and outpatient dialysis unit is aware of estimated dry weight adjustment. (2) Hypertension Current Visit: Yes Status: Chronic Titrate antihypertensive as needed. Qualifiers: Hypertension type: essential hypertension Qualified Code(s): I10 - Essential (primary) hypertension (3) Lower extremity edema Current Visit: No Status: Chronic 1.5 L fluid restriction. (4) Peripheral vascular disease Current Visit: No Status: Acute Appreciate Vascular Surgery (5) Hyponatremia Current Visit: No Status: Acute Will monitor; rec slow rate of correction. Code(s): E87.1 - Hypo-osmolality and hyponatremia (6) Anemia Current Visit: No Status: Acute Goal hemoglobin of 10-11. Will assess for EPO and/or IV iron Qualifiers: Anemia type: unspecified type Qualified Code(s): D64.9 - Anemia, unspecified Subjective Principal diagnosis: ESRD Interval history: Again seen and examined in hemodialysis, tolerating well. Denies chest pain or shortness of breath. Denies nausea, vomiting or diarrhea. Admits to overall feeling okay. Objective - Vital Signs Vital signs: Vital Signs Temp Pulse Resp BP Pulse Ox 06/26/19 12:15 115/65 06/26/19 12:00 105/60 06/26/19 11:45 99/61 06/26/19 11:30 113/66 06/26/19 11:15 108/65 06/26/19 11:00 92/59 06/26/19 10:45 97/58 06/26/19 10:30 106/63 06/26/19 10:15 103/61 06/26/19 10:00 105/42 06/26/19 09:45 119/42 06/26/19 09:30 98.5 F 18 107/42 06/26/19 06:50 97.7 F 91 18 106/67 100 06/26/19 03:29 98.6 F 84 18 111/72 100 06/25/19 23:48 97.7 F 82 20 108/66 100 06/25/19 19:41 98.0 F 76 16 89/53 95 06/25/19 16:45 98.0 F 79 16 108/69 100 Intake and Output 06/25/19 06/26/19 06/26/19 23:59 07:59 15:59 Intake Total 720 / 720 Balance 720 / 720 Intake: Oral 120 / 120 Intake, Rinseback and Flushes 600 / 600 Other: Meal Breakfast Percent of Meal Consumed 25% Weight 94.4 kg Blood Glucose* 93 72 86 Hemodialysis Net Fluid Removed 2383 (mL) - General Appearance General appearance: Present: well-developed, well-nourished EENT: Present: ATNC, hearing intact, vision intact Neck: Present: supple Respiratory: Present: clear Cardiology: Present: edema (Edema noted to right lower extremity.), normal S1, normal S2 Dialysis Vascular Access: Venous Catheter (Dressing clean dry and intact.) Gastrointestinal: Present: normoactive bowel sounds, no tenderness, no guarding Integumentary: Present: no rash, warm and dry Neurologic: Present: alert and oriented x3 Musculoskeletal: Present: no deformities, no erythema Psychiatric: Present: mood/affect appropriate, cooperative - Lab 06/26/19 04:35 06/26/19 04:35 Most recent lab results 06/26/19 04:35 Calcium 7.7 L Consult Discharge Plan - Plan Referrals: Nathanael Holbrook MD [Partnered Physician] - 07/24/19 2:20 pm (4 weeks) Gildardo Campuzano DO [Primary Care Provider] - (ECF) Prescriptions: OxyCODONE Immed Rel [Roxicodone 5 MG] 10 mg PO Q4HR PRN 3 Days #12 tablet PRN Reason: Severe pain
--- NOTE | 2019-06-26 15:05 | Internal Med Progress Note ---
Hospitalist Progress Note - Encounter Date of Encounter: 06/26/19 Time of Encounter: 15:03 - Subjective Interval History: Patient without any complaints. Awaiting discharge that will likely not be today. - Exam Vitals: Temp Pulse Resp BP Pulse Ox 97.5 F L 91 18 115/71 100 06/26/19 13:06 06/26/19 06:50 06/26/19 13:06 06/26/19 13:06 06/26/19 06:50 Exam: General: Ill-appearing and in no acute distress HEENT: No erythema of posterior pharynx. No exudates. Lymphatics: No mandibular or cervical lymphadenopathy Cardiovascular: RRR. No murmurs. No chest wall tenderness. Lungs: Clear to auscelltation bilaterally. Regular chest rise. Abdomen: Non-tender. No rebound or gaurding. Nl bowel sounds. Extremities: No edema. L BKA Skin: No rahses, abrasions, or contusions. Nl cap refill. Psych: Nl attention. A&Ox3 Neuro: route returner II-XII intact. 5/5 strength. Sensation to light touch and pinprick intact. - Assessment and Plan (1) Gangrene Current Visit: No Status: Acute Assessment and Plan: Patient with history of insulin-dependent diabetes type 2 and peripheral vascular disease presents with diabetic infection of the LLE s/p above the knee amputation. -Patient was hospitalized last month for diabetic foot infection but this has progressed needing further debridement this admission -Doing well since [id number] amputation -Currently awaiting placement PLAN: - ID consult to see if antibiotics are still warranted - We will follow up with vascular surgery after hospital stay - Discharged to rehabilitation facility when bed available (2) Peripheral vascular disease Current Visit: No Status: Acute Assessment and Plan: Hx of recent left popliteal to tibial bypass on Left. - Continue aspirin, statin, warfarin and follow up with vascular surgery as scheduled (3) CKD (chronic kidney disease), stage IV Current Visit: Yes Status: Chronic Assessment and Plan: Has been on and off dialysis in the past. Most recently has been on dialysis and will continue for this foreseeable future given ongoing issues with anasarca. - Nephrology following for dialysis (4) Diabetes Current Visit: Yes Status: Chronic Assessment and Plan: Continue current insulin regimen (5) History of atrial fibrillation Current Visit: No Status: Acute Assessment and Plan: Rate controlled with Coreg and on warfarin outpatient DVT Prophylaxis: Warfarin Internal Medicine: Result - Labs CBC & Chem 7: 06/26/19 04:35 06/26/19 04:35 Labs: Short CBC 06/26/19 Range/Units 04:35 WBC 14.4 H (4.3-11.1) K/mcL Hgb 9.2 L (12.9-16.9) g/dL Hct 29.5 L (37.5-50.1) % Plt Count 284 (140-400) K/mcL Neutrophils # 11.6 H (1.6-8.9) K/mcL BMP 06/26/19 04:35 Sodium 134 L Potassium 4.6 Chloride 98 Carbon Dioxide 25 BUN 63 H Creatinine 3.16 H Glucose 71 Calcium 7.7 L - ABG Interpretation ABG results: PT/INR, D-dimer PT 22.1 Seconds (9.4-12.1) H 06/26/19 04:35 Consult Discharge Plan - Plan Referrals: Nathanael Holbrook MD [Partnered Physician] - 07/24/19 2:20 pm (4 weeks) Gildardo Campuzano DO [Primary Care Provider] - (ECF) Prescriptions: OxyCODONE Immed Rel [Roxicodone 5 MG] 10 mg PO Q4HR PRN 3 Days #12 tablet PRN Reason: Severe pain (4) Diabetes Qualifiers: Diabetes mellitus type: type 2 Diabetes mellitus continuous churn buttermaker insulin use: with continuous churn buttermaker use Diabetes mellitus complication status: with circulatory complication Diabetes mellitus complication detail: with peripheral angiopathy with gangrene Qualified Code(s): E11.52 - Type 2 diabetes mellitus with diabetic peripheral angiopathy with gangrene; Z79.4 - retirement (current) use of insulin
[2019-06-26] MEDS ORDERED: *HR* Warfarin 2 MG TABLET PO ONE (18:00)
[2019-06-26] MEDS: *HR* OxyCODONE Immed Rel 5 MG TABLET PO PRN (19:28)
[2019-06-27] MEDS: *HR* HYDROcodone/Acet 5/325 mg TABLET PO PRN ×2 (03:15→14:31)
[2019-06-27 04:37] LABS: Basophils % 0.1 %; Eosinophils # 0.1 K/mcL (0.0-0.6); Eosinophils % 0.9 %; Hematocrit 29.7 % (37.5-50.1); Hemoglobin 9.1 g/dL (12.9-16.9); Immature Granulocytes % 2.5 % (0-4); Lymphocytes % 6.9 %; Mean Corpuscular HGB Conc 30.6 g/dL (31.6-35.5); Mean Corpuscular Hemoglobin 29.1 pg (28.0-33.3); Mean Corpuscular Volume 94.9 fL (83.0-100.0); Mean Platelet Volume 9.1 fL (9.4-12.4); Monocytes % 6.9 %; Neutrophils # 12.4 K/mcL (1.6-8.9); Nucleated Red Blood Cells 0.1 /100 WBC (0); Platelet Count 293 K/mcL (140-400); Red Blood Count 3.13 M/mcL (4.19-5.50); Red Cell Distribution Width 17.9 % (11.5-14.5); Segmented Neutrophils % 82.7 %
[2019-06-27 04:44] LABS: INR 2.7; Prothrombin Time 30.6 Seconds (9.4-12.1)
[2019-06-27 04:56] LABS: Calcium 7.4 mg/dL (8.6-10.3); Potassium 4.1 mEq/L (3.5-5.1)
[2019-06-27] MEDS: *HR* OxyCODONE Immed Rel 5 MG TABLET PO PRN (06:45)
[2019-06-27] MEDS: Insulin LISPRO 300 UNITS/3 ML VIAL SQ SCH ×3 (08:08→16:41)
[2019-06-27] MEDS: Insulin DETEMIR 100 UNIT/ML X5UNITS SQ SCH (08:09)
[2019-06-27] MEDS: Aspirin Enteric Coated 81 MG Tablet PO SCH (08:12)
[2019-06-27] MEDS: Furosemide 40 MG TABLET PO SCH ×2 (08:12→17:02)
--- NOTE | 2019-06-27 09:58 | Nephrology Progress Note ---
Date of Encounter: 06/27/19 Time of Encounter: 09:55 - Assessment and Plan (1) CKD (chronic kidney disease), stage IV Current Visit: Yes Status: Chronic Patient is currently considered an acute kidney injury dependent on hemodialysis. He was a kidney disease stage 4/[address] Colmenares. He was on dialysis until April of this year and it was stopped by Dr. Colmenares. He was then admitted to the hospital on May of this year and hemodialysis was continued after issues with hypervolemia. HD completed yesterday without complication. Potassium is 4.1 , improved. Advised renal diet. Avoid nephrotoxins and renal dose all medications. Strict I&O. Daily weights. Continue HD outpatient three times a week. With recent labs, patient could possibly be decreased to twice a week HD, since it is more fluid balance then a clearance issue. He currently goes to [facility]. A 24-hour urine has been ordered for outpatient, and outpatient dialysis unit is aware of estimated dry weight adjustment. May go to rehab facility from a renal standpoint. (2) Hypertension Current Visit: Yes Status: Chronic Titrate antihypertensive as needed. Qualifiers: Hypertension type: essential hypertension Qualified Code(s): I10 - Essential (primary) hypertension (3) Lower extremity edema Current Visit: No Status: Chronic 1.5 L fluid restriction. (4) Peripheral vascular disease Current Visit: No Status: Acute Appreciate Vascular Surgery (5) Hyponatremia Current Visit: No Status: Acute Will monitor; rec slow rate of correction. Code(s): E87.1 - Hypo-osmolality and hyponatremia (6) Anemia Current Visit: No Status: Acute Goal hemoglobin of 10-11. Will assess for EPO and/or IV iron Qualifiers: Anemia type: unspecified type Qualified Code(s): D64.9 - Anemia, unspecifie d Subjective Principal diagnosis: ESRD Interval history: Again seen and examined family member at bedside.Denies chest pain or shortness of breath. Denies nausea, vomiting or diarrhea. Admits to overall feeling okay and is ready to go to rehab facility. Objective - Vital Signs Vital signs: Vital Signs Temp Pulse Resp BP Pulse Ox 06/27/19 07:01 97.4 F L 83 20 112/71 100 06/27/19 03:28 98.3 F 86 16 109/72 06/26/19 23:06 98.0 F 85 16 112/71 99 06/26/19 18:30 98.0 F 83 16 106/67 100 06/26/19 15:51 98.0 F 92 18 111/70 100 06/26/19 13:06 97.5 F L 18 115/71 06/26/19 12:30 105/67 06/26/19 12:15 115/65 06/26/19 12:00 105/60 06/26/19 11:45 99/61 06/26/19 11:30 113/66 06/26/19 11:15 108/65 06/26/19 11:00 92/59 06/26/19 10:45 97/58 06/26/19 10:30 106/63 06/26/19 10:15 103/61 06/26/19 10:00 105/42 Intake and Output 06/26/19 06/27/19 06/27/19 23:59 07:59 15:59 Output Total 100 / 100 Balance -100 / -100 Output: Urine 100 / 100 Other: Weight 95 kg Blood Glucose* 187 72 - General Appearance General appearance: Present: well-developed, well-nourished EENT: Present: ATNC, hearing intact, vision intact Neck: Present: supple Respiratory: Present: clear Cardiology: Present: edema (Edema noted to RLE and abdomen.), normal S1, normal S2 Dialysis Vascular Access: Venous Catheter (DRSG C/D./I) Gastrointestinal: Present: normoactive bowel sounds, no tenderness, no guarding Integumentary: Present: no rash, warm and dry Neurologic: Present: alert and oriented x3 Musculoskeletal: Present: no deformities, no erythema Psychiatric: Present: mood/affect appropriate, cooperative - Lab 06/27/19 04:30 06/27/19 04:30 Most recent lab results 06/27/19 04:30 Calcium 7.4 L Consult Discharge Plan - Plan Referrals: Nathanael Holbrook MD [Partnered Physician] - 07/24/19 2:20 pm (4 weeks) Gildardo Campuzano DO [Primary Care Provider] - (ECF) Prescriptions: OxyCODONE Immed Rel [Roxicodone 5 MG] 10 mg PO Q4HR PRN 3 Days #12 tablet PRN Reason: Severe pain
--- NOTE | 2019-06-27 10:33 | Internal Med Progress Note ---
Hospitalist Progress Note - Encounter Date of Encounter: 06/27/19 Time of Encounter: 10:27 - Subjective Interval History: Patient feeling well this morning with no complaints. Anticipating discharge to [place]. - Exam Vitals: Temp Pulse Resp BP Pulse Ox 97.4 F L 83 20 112/71 100 06/27/19 07:01 06/27/19 07:01 06/27/19 07:01 06/27/19 07:01 06/27/19 07:01 Exam: General: Ill-appearing and in no acute distress HEENT: No erythema of posterior pharynx. No exudates. Lymphatics: No mandibular or cervical lymphadenopathy Cardiovascular: RRR. No murmurs. No chest wall tenderness. Lungs: Clear to auscelltation bilaterally. Regular chest rise. Abdomen: Non-tender. No rebound or gaurding. Nl bowel sounds. Extremities: No edema. L BKA Skin: No rahses, abrasions, or contusions. Nl cap refill. Psych: Nl attention. A&Ox3 Neuro: periodicals library assistant II-XII intact. 5/5 strength. Sensation to light touch and pinprick intact. - Assessment and Plan (1) Gangrene Current Visit: No Status: Acute Assessment and Plan: Patient with history of insulin-dependent diabetes type 2 and peripheral vascular disease presents with diabetic infection of the LLE s/p above the knee amputation. -Patient was hospitalized last month for diabetic foot infection but this has progressed needing further debridement this admission -Doing well since [id number] amputation -Leukocytosis up to 15 today. Unclear if this patient needs further antibiotics. Will inquire with ID PLAN: - We will touch this with ID regarding further need for antibiotics - We will follow up with vascular surgery after hospital stay - Discharged to rehabilitation facility when bed available (2) Peripheral vascular disease Current Visit: No Status: Acute Assessment and Plan: Hx of recent left popliteal to tibial bypass on Left. - Continue aspirin, statin, warfarin and follow up with vascular surgery as scheduled (3) CKD (chronic kidney disease), stage IV Current Visit: Yes Status: Chronic Assessment and Plan: Has been on and off dialysis in the past. Most recently has been on dialysis and will continue for this foreseeable future given ongoing issues with anasarca. - Nephrology following for dialysis (4) Diabetes Current Visit: Yes Status: Chronic Assessment and Plan: Continue current insulin regimen (5) History of atrial fibrillation Current Visit: No Status: Acute Assessment and Plan: Rate controlled with Coreg and on warfarin outpatient DVT Prophylaxis: Warfarin Internal Medicine: Result - Labs CBC & Chem 7: 06/27/19 04:30 06/27/19 04:30 Labs: Short CBC 06/27/19 Range/Units 04:30 WBC 15.0 H (4.3-11.1) K/mcL Hgb 9.1 L (12.9-16.9) g/dL Hct 29.7 L (37.5-50.1) % Plt Count 293 (140-400) K/mcL Neutrophils # 12.4 H (1.6-8.9) K/mcL BMP 06/27/19 04:30 Sodium 136 Potassium 4.1 Chloride 99 Carbon Dioxide 27 BUN 47 H Creatinine 2.69 H Glucose 86 Calcium 7.4 L - ABG Interpretation ABG results: PT/INR, D-dimer PT 30.6 Seconds (9.4-12.1) H 06/27/19 04:30 Consult Discharge Plan - Plan Referrals: Nathanael Holbrook MD [Partnered Physician] - 07/24/19 2:20 pm (4 weeks) Gildardo Campuzano DO [Primary Care Provider] - (ECF) Prescriptions: OxyCODONE Immed Rel [Roxicodone 5 MG] 10 mg PO Q4HR PRN 3 Days #12 tablet PRN Reason: Severe pain (4) Diabetes Qualifiers: Diabetes mellitus type: type 2 Diabetes mellitus detention insulin use: with detention use Diabetes mellitus complication status: with circulatory complication Diabetes mellitus complication detail: with peripheral angiopathy with gangrene Qualified Code(s): E11.52 - Type 2 diabetes mellitus with diabetic peripheral angiopathy with gangrene; Z79.4 - rn long term care (current) use of insulin
--- NOTE | 2019-06-27 16:05 | Discharge Summary ---
Date of Encounter: 06/27/19 Time of Encounter: 16:01 - Discharge Diagnosis (1) Gangrene Priority: Primary Status: Acute (2) Peripheral vascular disease Priority: Secondary Status: Acute (3) CKD (chronic kidney disease), stage IV Priority: Secondary Status: Chronic (4) Diabetes Priority: Secondary Status: Chronic Qualifiers: Diabetes mellitus type: type 2 Diabetes mellitus superintendent container terminal insulin use: with superintendent container terminal use Diabetes mellitus complication status: with circulatory complication Diabetes mellitus complication detail: with peripheral angiopathy with gangrene Qualified Code(s): E11.52 - Type 2 diabetes mellitus with diabetic peripheral angiopathy with gangrene; Z79.4 - jail (current) use of insulin (5) History of atrial fibrillation Priority: Secondary Status: Acute Hospital course: Mr. Ramírez is a 74 year old male with history of insulin-dependent diabetes type 2, ESRD, and peripheral vascular disease s/p left popliteal to tibial bypass presented with diabetic infection of the LLE s/p above the knee amputation. Patient was hospitalized last month for diabetic foot infection but this has progressed needing further debridement this admission. Has ESRD on HD currently - unclear if he will need this indefinitely. Was seen by ID before discharge to see if additional antibiotics were warranted and they did not recommend further antibiotics at this time. Will discharge to swing bed for rehab and follow-up with vascular surgery and nephrology. Discharge discussed with: patient - Time Spent with Patient Total time spent providing and/or coordinating discharge services: 70 minutes Time spent: Greater than 30 minutes - Discharge Medications Prescriptions: New OxyCODONE Immed Rel [Roxicodone 5 MG] 10 mg PO Q4HR PRN 3 Days #12 tablet PRN Reason: Severe pain Polyethylene Glycol 3350 [MiraLAX] 17 gm PO BID powd.pack Continued Allopurinol [Zyloprim 100 MG] 100 mg PO DAILY Aspirin [Lo-Dose Aspirin EC] 81 mg PO DAILY Carvedilol 12.5 mg PO BID Insulin LISPRO [HumaLOG] 10 - 15 units SQ TIDWM MDD SLIDING SCALE Melatonin 3 mg PO HS Ranitidine HCl [Acid Electric Meter Inspector] 75 mg PO DAILY Warfarin [Coumadin] 2 mg PO DAILY Furosemide [Lasix] 40 mg PO BID Mv,Minerals/FA/Lycopene/Ginkgo [One Daily For Men 50+ Adv Tab] 1 each PO DAILY Atorvastatin [Lipitor] 40 mg PO HS Changed Insulin DETEMIR [Levemir] 10 unit SQ 2100 #0 Discontinued Isosorbide DInitrate [Isosorbide Dinitrate] 20 mg PO TID Insulin DETEMIR [Levemir] 35 unit SQ 0900 Home Medications: Atorvastatin [Lipitor] 40 mg PO HS 01/31/19 [History] Mv,Minerals/FA/Lycopene/Ginkgo [One Daily For Men 50+ Adv Tab] 1 each PO DAILY 01/31/19 [History] Allopurinol [Zyloprim 100 MG] 100 mg PO DAILY 03/28/19 [History] Aspirin [Lo-Dose Aspirin EC] 81 mg PO DAILY 03/28/19 [History] Carvedilol 12.5 mg PO BID 03/28/19 [History] Insulin LISPRO [HumaLOG] 10 - 15 units SQ TIDWM MDD SLIDING SCALE 03/28/19 [History] Melatonin 3 mg PO HS 03/28/19 [History] Ranitidine HCl [Acid Electric Meter Inspector] 75 mg PO DAILY 03/28/19 [History] Warfarin [Coumadin] 2 mg PO DAILY 03/28/19 [History] Furosemide [Lasix] 40 mg PO BID 05/17/19 [History] OxyCODONE Immed Rel [Roxicodone 5 MG] 10 mg PO Q4HR PRN 3 Days #12 tablet 06/25/19 [Rx] Insulin DETEMIR [Levemir] 10 unit SQ 2100 #0 06/27/19 [Rx] Polyethylene Glycol 3350 [MiraLAX] 17 gm PO BID powd.pack 06/27/19 [Rx] Allergies/Adverse Reactions: Allergy/AdvReac Type Severity Reaction Status Date / Time Iodinated Contrast- Oral and Allergy Hives Verified 06/22/19 14:42 IV Dye [Iodinated Contrast Media - Oral and] Date of admission: 06/22/19 03:31 Primary care physician: Gildardo Campuzano DO Consults: 06/22/19 03:52 Consult to Vascular Surgery [CONS] Routine Consulting Provider: Vascular Surgery Graciela Reason for Consult: Left leg cellulitis/post op infection Call Completed: Yes 06/22/19 04:02 Consult to Nephrology [CONS] Routine Consulting Provider: Kidney Spade/MINI/DC/VIKY Reason for Consult: Patient has been on dialysis for JAY Call Completed: No 06/22/19 04:54 Consult to Infectious Diseases [CONS] Routine Consulting Provider: Infectious Disease Spade Reason for Consult: Left leg infection, antibiotic recommendations Call Completed: No 06/24/19 08:30 Consult to Dialysis [CONS] ONCE 06/24/19 09:18 Consult to Nurse Navigator [CONS] Routine Comment: hd 06/24/19 12:07 Consult to Physical Therapy [CONS] Routine Comment: Evaluate, develop and implement POC Reason for Consult: AKA Does patient have active BEDREST order?: No Is patient medically & hemodynamically stable?: Yes Patient assessed for mobility or mobilized this visit?: Yes 06/24/19 12:08 Consult to Occupational Therapy [CONS] Routine Comment: Evaluate, develop and implement POC Reason for Consult: AKA Does patient have active BEDREST order?: No Is patient medically & hemodynamically stable?: Yes Patient assessed for mobility or mobilized this visit?: Yes 06/26/19 07:00 Consult to Dialysis [CONS] ONCE - Constitutional Vitals: Temp Pulse Resp BP Pulse Ox 97.4 F L 86 18 103/63 100 06/27/19 10:30 06/27/19 10:30 06/27/19 10:30 06/27/19 10:30 06/27/19 10:30 General appearance: Present: cooperative Exam: General: Ill-appearing and in no acute distress HEENT: No erythema of posterior pharynx. No exudates. Lymphatics: No mandibular or cervical lymphadenopathy Cardiovascular: RRR. No murmurs. No chest wall tenderness. Lungs: Clear to auscelltation bilaterally. Regular chest rise. Abdomen: Non-tender. No rebound or gaurding. Nl bowel sounds. Extremities: No edema. L BKA Skin: No rahses, abrasions, or contusions. Nl cap refill. Psych: Nl attention. A&Ox3 Neuro: alto singer II-XII intact. 5/5 strength. Sensation to light touch and pinprick intact. - Patient Status Disposition: Home, Self-Care Condition: Good Functional capacity at discharge: uses cane/walker Overall status at discharge: patient is progressing back to baseline - Discharge Instructions Instructions: Above the Knee Amputation (DC) Follow Up With: Nathanael Holbrook MD [Partnered Physician] - 07/24/19 2:20 pm (4 weeks) Gildardo Campuzano DO [Primary Care Provider] - (ECF) - Diet and Activity Activity: as per physical therapy Diet: diabetic diet
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
--- NOTE | 2019-06-27 16:15 | Physician Discharge Referral ---
ExtendedCare Referral Info Transfer To: SNF at [facility] Provider in Charge: Otto Sloan MD Provider in Charge after Transfer: PCP Institutional Level of Care: Skilled - Diagnosis (1) Gangrene Priority: Primary Status: Acute (2) Peripheral vascular disease Priority: Secondary Status: Acute (3) CKD (chronic kidney disease), stage IV Priority: Secondary Status: Chronic (4) Diabetes Priority: Secondary Status: Chronic (5) History of atrial fibrillation Priority: Secondary Status: Acute - Transfer Medications Prescriptions: OxyCODONE Immed Rel [Roxicodone 5 MG] 10 mg PO Q4HR PRN 3 Days #12 tablet PRN Reason: Severe pain Home Medications: Atorvastatin [Lipitor] 40 mg PO HS 01/31/19 [History] Mv,Minerals/FA/Lycopene/Ginkgo [One Daily For Men 50+ Adv Tab] 1 each PO DAILY 01/31/19 [History] Allopurinol [Zyloprim 100 MG] 100 mg PO DAILY 03/28/19 [History] Aspirin [Lo-Dose Aspirin EC] 81 mg PO DAILY 03/28/19 [History] Carvedilol 12.5 mg PO BID 03/28/19 [History] Insulin LISPRO [HumaLOG] 10 - 15 units SQ TIDWM MDD SLIDING SCALE 03/28/19 [History] Melatonin 3 mg PO HS 03/28/19 [History] Ranitidine HCl [Acid Real Estate Agent] 75 mg PO DAILY 03/28/19 [History] Warfarin [Coumadin] 2 mg PO DAILY 03/28/19 [History] Furosemide [Lasix] 40 mg PO BID 05/17/19 [History] OxyCODONE Immed Rel [Roxicodone 5 MG] 10 mg PO Q4HR PRN 3 Days #12 tablet 06/25/19 [Rx] Insulin DETEMIR [Levemir] 10 unit SQ 2100 #0 06/27/19 [Rx] Polyethylene Glycol 3350 [MiraLAX] 17 gm PO BID powd.pack 06/27/19 [Rx] Allergies/Adverse Reactions: Allergy/AdvReac Type Severity Reaction Status Date / Time Iodinated Contrast- Oral and Allergy Hives Verified 06/22/19 14:42 IV Dye [Iodinated Contrast Media - Oral and] - Respiratory Orders Smoking Cessation: Smoking cessation has been advised. For more information, call the [place] Tobacco Quit Line at 6-836-HOAK-NOW. - Lab Orders Lab Orders: CBC (In 1 week (07/04)) - Advance Directives Living Will: No Power of Laborer Pipelines for Health Care: No Code Status: Full Code - Mobility Orders Chair, Ambulate - Rehabiliation Orders Rehab Potential: Good Rehab Orders: Evaluation for Physical Therapy, Evaluation for Occupational Therapy - Diet Orders No Concentrated Sweets CERTIFICATION: I certify that the transfer of the above named patient to an Extended Care Facility is necessary for the continuing treatment of the diagnosis listed. The above information is true and accurate reflection of patient's current condition. Confidential - Redisclosure prohibited without a patient's written consent.
[2019-06-27 16:37] VITALS: BP 113/65
[2019-06-27] MEDS ORDERED: *HR* Warfarin 1 MG TABLET PO ONE (18:00)
--- NOTE | 2019-06-27 20:03 | Infectious Disease Consult ---
Infectious Disease-Consult - Encounter Date/Time Date of Encounter: 06/27/19 Time of Encounter: 15:30 - Data of Consult Patient: known to practice within the last 3 years Reason for consult: persistent leukocytosis. Advise on antibiotics Consult date: 06/26/19 Requesting Physician: Jaycee Phillips MD Primary Care Provider: Gildardo Campuzano, DO - HPI HPI: Mr Ramírez is a 74M who was transferred to [facility] from [facility] on 06/22/19 for worsening left leg infection. The infectious disease team was consulted on 06/26/19 for assistance with antibiotic management. The patient has a PMH of afib on Coumadin, CHF, COPD, CAD, DM2, ESRD, and PAD. He was recently treated at [facility] for gangrenous necrosis of the left foot with daptomycin and Levaquin. He was discharged home with a course of Augmentin and Levaquin for 14 days. At that time he was also on hemodialysis with scheduled Monday, Monday, Monday. CT of the foot on 06/12/19 showed further wound dehiscence and of the left foot with a fluid collection measuring 5.3 x 2.3 x 1.1 cm. Vascular surgery was reported to be notified and further on the patient's WBC count was elevated rated at 17.2. At this time the patient and family agreed to transfer to [facility] for more aggressive intervention regarding the left leg. He was started on IV Zosyn and clindamycin prior to this transfer. Vital signs on arrival to [facility] in 06/22/19 as follows: Temp 98.5 Heart rate 86 Respiratory rate 16 Blood pressure 97/54 SPO2 97% on room air Labs were significant for leukocytosis at 14.4, hemoglobin 9.1, INR 2.3, nightly 42, and serum creatinine 2.4. Hyperglycemia was also noted with elevated glucose at 145. Vascular surgery was consulted. The antibiotics were transitioned from Zosyn and clindamycin to vancomycin and Levaquin. Nephrology was consulted for management of dialysis. The patient went to the OR with Dr. Sterling on 06/23/19 for a left baixs-les-bgyh amputation for peripheral vascular disease with gangrene. During the admission the infectious disease team was consult for assistance with antibiotic management related to gangrene. Patient seen and examined at bedside today. Denies any new or acute complaints. Multiple family members are at bedside during this encounter. He denies any fever, chills, chest pain, shortness of breath, increased sputum production, cough, abdominal pain, nausea, or vomiting. The patient does report some significant left leg pain which he describes as "phantom pain from my left foot". Denies any constipation or diarrhea. Does report some dysuria, stating "pain sets in on fire". Patient reports that this is chronic in nature and is also endorsed by the patient's at bedside. - ROS Review of Systems: A 10 point review of systems was obtained. Negative except for those stated in the HPI. - Results CBC & Chem 7: 06/27/19 04:30 06/27/19 04:30 - Exam Vitals: Temp Pulse Resp BP Pulse Ox 98.4 F 94 19 113/65 99 06/27/19 16:32 06/27/19 16:32 06/27/19 16:32 06/27/19 16:32 06/27/19 16:32 Exam: General: well appearing male in no acute distress Head: NCAT Eyes: PERRL, EOMI, sclera anicteric Neck: supple, trachea midline Lungs: CTAB. Nonlabored breathing. No wheezes, rales, or rhonchi Heart: RRR +s1 +s2 No murmurs, clicks, or rubs Abdomen: soft, nontender, nondistended Extremities: warm, radial pulses palpable and symmetrical. Left AKA. Right leg shows chronic arterial insufficiency changes. Neuro: A&Ox2. no focal deficits. no speech difficulty or abnormality. Skin: warm, dry, intact. Nadia on left stump in place. Surgical site appears to be healing well with no erythema, or drainage. Atorvastatin [Lipitor] 40 mg PO HS 01/31/19 [History] Mv,Minerals/FA/Lycopene/Ginkgo [One Daily For Men 50+ Adv Tab] 1 each PO DAILY 01/31/19 [History] Allopurinol [Zyloprim 100 MG] 100 mg PO DAILY 03/28/19 [History] Aspirin [Lo-Dose Aspirin EC] 81 mg PO DAILY 03/28/19 [History] Carvedilol 12.5 mg PO BID 03/28/19 [History] Insulin LISPRO [HumaLOG] 10 - 15 units SQ TIDWM MDD SLIDING SCALE 03/28/19 [History] Melatonin 3 mg PO HS 03/28/19 [History] Ranitidine HCl [Acid Reservoir Caretaker] 75 mg PO DAILY 03/28/19 [History] Warfarin [Coumadin] 2 mg PO DAILY 03/28/19 [History] Furosemide [Lasix] 40 mg PO BID 05/17/19 [History] OxyCODONE Immed Rel [Roxicodone 5 MG] 10 mg PO Q4HR PRN 3 Days #12 tablet 06/25/19 [Rx] Insulin DETEMIR [Levemir] 10 unit SQ 2100 #0 06/27/19 [Rx] Polyethylene Glycol 3350 [MiraLAX] 17 gm PO BID powd.pack 06/27/19 [Rx] Allergy/AdvReac Type Severity Reaction Status Date / Time Iodinated Contrast- Oral and Allergy Hives Verified 06/22/19 14:42 IV Dye [Iodinated Contrast Media - Oral and] - Assessment and Plan (1) Gangrene Status: Acute Of the left foot Causative organism as seen on culture from 06/06/19 with - Enterococcus faecalis - Citrobacter species - Providenia species - Stenotrophomonas maltophilia - Myroides species Previously treated with daptomycin and Levaquin Status post amputation on 06/23/19 Incision site appears to be healing well with no erythema, or areas of fluctuance. SNOMED Code(s): 153966258 (2) Leukocytosis Status: Acute Likely related to postoperative status and chronic vascular insufficiency Needs to sirs criteria with tachycardia and leukocytosis, however there does appear to be a source of infection at this time Recommend checking urinalysis with reflex culture for complaints of dysuria. However patient reports dysuria since May No antibiotics recommended at this time unless urinalysis is suggestive of UTI. Qualifiers: Leukocytosis type: unspecified Qualified Code(s): D72.829 - Elevated white blood cell count, unspecified SNOMED Code(s): 540371496, 182313052 (3) Constipation Status: Acute Likely 2/2 pain medications May be source of leukocytosis in post-surgical state Bowel regimen per primary team Qualifiers: Constipation type: unspecified constipation type Qualified Code(s): K59.00 - Constipation, unspecified SNOMED Code(s): 59393472 (4) Peripheral vascular disease Status: Acute SNOMED Code(s): 128839434 (5) CKD (chronic kidney disease), stage IV Status: Chronic SNOMED Code(s): 938271975 (6) Diabetes Status: Chronic Qualifiers: Diabetes mellitus type: type 2 Diabetes mellitus fci insulin use: with laborer marine terminal use Diabetes mellitus complication status: with circulatory complication Diabetes mellitus complication detail: with peripheral angiopathy with gangrene Qualified Code(s): E11.52 - Type 2 diabetes mellitus with diabetic peripheral angiopathy with gangrene; Z79.4 - senior care (current) use of insulin SNOMED Code(s): 63642109 (7) Dysuria Status: Chronic Pt reports chronic dysuria Pt's endorses this Will obtain UA SNOMED Code(s): 85254548 Past Med Surg Social Fam HX - Past Medical History Attestation: Yes The following information was validated with the patient. Source: patient, old records reviewed, obtained from family, nursing notes reviewed Medical history: atrial fibrillation, CHF, COPD, coronary artery disease, diabetes, dialysis, hypertension, renal disease Additional medical history: last day of dialysis 05/10/19 Psychiatric history: no psych history - Past Surgical History Surgical History: coronary bypass (CABG), AICD, pacemaker Additional surgical history: gastric bypass, toes removed from both feet, Left AKA - Social History Smoking Status: Former smoker Smokeless Tobacco Status: No Alcohol use: none Drug use: none - Family History Father Family Member Ethnicity: Non- Living Status: Hx Family Cardiac Disorders: Yes (triple bypass) Hx Family Respiratory Disorders: No Hx Family Cancer: Yes Hx Family GI Disorders: Yes (ulcers) Hx Family Endocrine Disorder: No Hx Family Neuromuscular Disorders: No Hx Family Neurologic Disorders: No Hx Family HEENT Disorders: No Hx Family Autoimmune Disorders: No Mother Hx Family Endocrine Disorder: Yes (DM) Consult Discharge Plan - Plan Instructions: Above the Knee Amputation (DC) Referrals: Nathanael Holbrook MD [Partnered Physician] - 07/24/19 2:20 pm (4 weeks) Gildardo Campuzano DO [Primary Care Provider] - ([facility]) Prescriptions: OxyCODONE Immed Rel [Roxicodone 5 MG] 10 mg PO Q4HR PRN 3 Days #12 tablet PRN Reason: Severe pain - Attending Attestation I examined this patient and my medical decision-making was reviewed with the Resident Physician. I agree with the documented findings, disposition and treatment plan as described except to the extent set forth below. Assessment and Plan: 1. gangrene of the Left foot causative organism E faecalis, Citrobacter spp, providenica spp and stenotrophomonas maltophilia myeroides spp Treated with daptomycin + levofloxacin 2.s/p amputation on 06/23 3.persistent leukocytosis 4.constipation 5. dysuria - chronic since May - patient states it tarango all the time and "peeing sets it on fire" Recommendations check U/A with reflex microbiology stool softner stump looks great no antibiotics at this time unless urine is suggestive of UTI d/w Dr. Sloan
== END 2019-06-27 17:55 | disposition home or self-care (01) | DRG 239 ==
LOC: 2ANU → SUATTDRO 06-22 03:31
PROVIDERS: ADMIT Family Medicine; ATTEND Internal Medicine